=== PATIENT | female | born 1955 | race Caucasian/White ===

== ENCOUNTER → 2017-10-02 07:54 | Outpatient (CLI) | payer OTHER, SELFPAY | PROVIDERS: Family Provider Internal Medicine; PCP Internal Medicine; Visit Provider Obstetrics & Gynecology | DX: Z12.31 Encounter for screening mammogram for malignant neoplasm of breast (principal) | CPT/HCPCS: 77063; 77067 ==

== ENCOUNTER → 2018-06-12 08:51 | Outpatient (CLI) | payer OTHER, SELFPAY ==
[2018-06-12 12:50] LABS: Absolute Lymphocyte Count 1.15 X10^3/ul (0.83-4.51); Absolute Neutrophil Count 2.2 X10^3/uL (2.0-7.7); Basophil# 0.03 X10^3/uL; Basophil% 0.8 % (0-1); Eosinophil# 0.09 X10^3/uL; Eosinophils% 2.3 % (0-5); Hematocrit 41.9 % (37-47); Hemoglobin 13.5 g/dl (12.0-15.0); Lymphocyte # 1.15 X10^3/ul (4.0); Lymphocyte % 29.3 % (19-41); Mean Corp Hgb Conc 32.2 g/gl (32-36); Mean Corpuscular Hgb 29.2 pg (27.0-32.0); Mean Corpuscular Volume 90.7 fL (81-99); Mean Platelet Vol. 10.1 fl (6.2-12.0); Monocyte# 0.41 X10^3/uL; Monocyte% 10.5 % (0-10); Neutrophil # 2.24 X10^3/uL (2.7-7.7); Neutrophil % 57.1 % (47-70); Platelet Count 239 K/mm3 (150-450); RBC Distribution Width CV 13.4 % (11.6-14.6); RBC Distribution Width SD 44.2 fl (35.1-43.9); Red Blood Count 4.62 M/mm3 (4.2-5.4); White Blood Count 3.9 K/mm3 (4.4-11.0)
[2018-06-12 13:06] LABS: Vitamin D,25 Hydroxy 41.2 ng/mL (29.95-100.01)
[2018-06-12 13:10] LABS: ALB/GLOB Ratio 1.1 RATIO (0.9-2.4); AST(SGOT) 31 U/L (15-37); Alanine Aminotransfer ALT/SGPT 42 U/L (13-56); Albumin, Serum 3.8 g/dL (3.2-5.0); Alkaline Phosphatase 71 U/L (45-117); Anion Gap 5 (5-15); BUN 12 mg/dL (7-18); BUN/Creat Ratio 14.5 RATIO (10-20); Calcium,Total 8.7 mg/dL (8.5-10.1); Chloride 108 mmol/L (98-107); Cholesterol 171 mg/dL (200); Creatinine, Serum 0.83 mg/dL (0.55-1.02); EST Glomerular Filtration Rate 75 mL/min (>60); Est Glom Filt Rate - Afr Amer 90 mL/min (>60); Globulin 3.5 g/dL (2.2-4.2); Glucose 91 mg/dL (74-106); High Density Lipoprotein 41 mg/dL; Potassium 3.8 mmol/L (3.5-5.1); Protein, Total 7.3 g/dL (6.4-8.2); Sodium Level 139 mmol/L (136-145); Thyroid Stim Hormone (TSH) 2.01 uIU/mL (0.358-3.74); Triglycerides 125 mg/dL; Very Low Density Lipoprotein 25 mg/dL (5-40)
[2018-06-12 13:12] LABS: POSITIVE COUNT NO; POSITIVE DIFFERENTIAL NO; POSITIVE MORPHOLOGY NO
== END ==
PROVIDERS: Family Provider Family Medicine; PCP Family Medicine; Visit Provider Family Medicine
DX: E03.9 Hypothyroidism, unspecified (principal); E78.5 Hyperlipidemia, unspecified; R73.03 Prediabetes
CPT/HCPCS: 36415; 80053; 80061; 82306; 84443; 85025

== ENCOUNTER → 2018-11-03 08:41 | Outpatient (CLI) | payer OTHER, SELFPAY ==
--- NOTE | 2018-11-03 08:56 | BI_ITS ---
MAMMOGRAPHY - BILATERAL SCREENING REASON FOR EXAM: Female, 63 years old. Routine annual screening examination. PERTINENT HISTORY: Non-contributory. TECHNIQUE: Digital bilateral breast miriam (3D mammographic acquisition) in the CC and MLO projections. 2-D mediolateral oblique (MLO) and craniocaudad (CC) views of both breasts were obtained. CAD: Full Field Digital Mammography with Computer Added Detection was performed. COMPARISON: Comparison is made with prior study dated October 02, 2017 and August 29, 2016. FINDINGS: Breast Composition: There are scattered areas of fibroglandular density. There are no dominant masses or suspicious calcifications. Stable benign-appearing bilateral axillary lymph nodes. No other significant abnormalities are identified. There has been no significant change since the prior study. BI/SCREEN MAMM (CAD) W/MIRIAM BILAT IMPRESSION: Stable bilateral screening mammogram. Yearly follow-up mammogram recommended. (A) ASSESSMENT CATEGORY: BIRADS Category 2: Benign. A letter regarding these results will be sent to the patient by the facility within 30 days. Approximately 10% of breast cancers are not detected by mammography. A normal mammogram should not delay biopsy of a clinically suspicious abnormality. [id number] Electronically Signed: Gomez Keenan, at 10:34 EDT , Service support ,
== END ==
PROVIDERS: Family Provider Family Medicine; PCP Family Medicine; Referring Provider Obstetrics & Gynecology; Visit Provider Obstetrics & Gynecology
DX: Z12.31 Encounter for screening mammogram for malignant neoplasm of breast (principal)
CPT/HCPCS: 77063; 77067

== ENCOUNTER → 2019-11-18 07:55 | Outpatient (CLI) | payer OTHER, SELFPAY ==
[2018-11-03 09:34] VITALS: BMI 31.9
--- NOTE | 2019-11-18 07:55 | BI_ITS ---
MAMMOGRAPHY - BILATERAL SCREENING REASON FOR EXAM: Female, 64 years old. Routine annual screening examination. PERTINENT HISTORY: Grandmother with breast cancer. TECHNIQUE: Digital bilateral breast miriam (3D mammographic acquisition) in the CC and MLO projections. 2-D mediolateral oblique (MLO) and craniocaudad (CC) views of both breasts were obtained. CAD: Full Field Digital Mammography with Computer Added Detection was performed. COMPARISON: Comparison is made with prior examination dated 11/03/2018 and 10/02/2017. FINDINGS: Breast Composition: There are scattered areas of fibroglandular density. There are no dominant masses or suspicious calcifications. Stable small benign appearing bilateral axillary lymph nodes. No other significant abnormalities are identified. There has been no significant change since the prior study. BI/SCREEN MAMM (CAD) W/MIRIAM BILAT IMPRESSION: Stable bilateral screening mammogram. Yearly follow-up mammogram recommended. (A) ASSESSMENT CATEGORY: BIRADS Category 2: Benign. A letter regarding these results will be sent to the patient by the facility within 30 days. Approximately 10% of breast cancers are not detected by mammography. A normal mammogram should not delay biopsy of a clinically suspicious abnormality. [id number] Electronically Signed: Gomez Keenan, at 11:17 EDT , Service support ,
== END ==
PROVIDERS: PCP Family Medicine; Referring Provider Obstetrics & Gynecology; Visit Provider Obstetrics & Gynecology
DX: Z12.31 Encounter for screening mammogram for malignant neoplasm of breast (principal)
CPT/HCPCS: 77063; 77067

== ENCOUNTER 2021-03-06 14:51 | Outpatient (CLI) | payer OTHER, SELFPAY ==
[2019-11-18 08:40] VITALS: BMI 31.9
--- NOTE | 2021-03-06 14:55 | BI_ITS ---
MAMMOGRAPHY - BILATERAL SCREENING REASON FOR EXAM: Female, 65 years old. Routine annual screening examination. PERTINENT HISTORY: Grandmother with breast cancer. TECHNIQUE: Digital bilateral breast miriam (3D mammographic acquisition) in the CC and MLO projections. 2-D mediolateral oblique (MLO) and craniocaudad (CC) views of both breasts were obtained. CAD: Full Field Digital Mammography with Computer Added Detection was performed. COMPARISON: Comparison is made with prior study 11/18/2019 and 11/03/2018. FINDINGS: Breast Composition: There are scattered areas of fibroglandular density. There are no dominant masses or suspicious calcifications. No other significant abnormalities are identified. There has been no significant change since the prior study. BI/SCRN MAMM (CAD)W/MIRAIM BILAT IMPRESSION: Stable bilateral screening mammogram. Yearly follow-up mammogram recommended. (A) ASSESSMENT CATEGORY: BIRADS Category 1: Negative. A letter regarding these results will be sent to the patient by the facility within 30 days. Approximately 10% of breast cancers are not detected by mammography. A normal mammogram should not delay biopsy of a clinically suspicious abnormality. [id number] Electronically Signed: Gomez Keenan MD at 15:27 EST ,
[2021-03-12 13:22] LABS: HPV APTIMA, High Risk Negative (Negative)
== END 2021-03-06 23:59 | disposition short-term general hospital (02) ==
PROVIDERS: PCP Family Medicine; Referring Provider Obstetrics & Gynecology; Visit Provider Obstetrics & Gynecology
DX: Z12.31 Encounter for screening mammogram for malignant neoplasm of breast (principal); Z80.3 Family history of malignant neoplasm of breast; Z12.4 Encounter for screening for malignant neoplasm of cervix
CPT/HCPCS: 77063; 77067; 87624; 88175; G0145

== ENCOUNTER → 2022-03-08 | Outpatient (CLI) | payer OTHER, SELFPAY ==
--- NOTE | 2022-03-08 09:40 | BI_ITS ---
MAMMOGRAPHY - BILATERAL SCREENING REASON FOR EXAM: Female, 66 years old. Routine annual screening examination. PERTINENT HISTORY: Non-contributory. TECHNIQUE: Digital bilateral breast miriam (3D mammographic acquisition) in the CC and MLO projections. 2-D mediolateral oblique (MLO) and craniocaudad (CC) views of both breasts were obtained. CAD: Full Field Digital Mammography with Computer Added Detection was performed. COMPARISON: Comparison is made with prior study dated 09/03/2021 and 11/18/2019. FINDINGS: Breast Composition: The breasts are almost entirely fatty. There are no dominant masses or suspicious calcifications. Stable benign-appearing bilateral axillary lymph nodes. No other significant abnormalities are identified. There has been no significant change since the prior study. BI/SCRN MAMM (CAD)W/MIRIAM BILAT IMPRESSION: Stable bilateral screening mammogram. Yearly follow-up mammogram recommended. (A) ASSESSMENT CATEGORY: BIRADS Category 2: Benign. A letter regarding these results will be sent to the patient by the facility within 30 days. Approximately 10% of breast cancers are not detected by mammography. A normal mammogram should not delay biopsy of a clinically suspicious abnormality. [id number] Electronically Signed: Gomez Keenan MD at 10:42 EST ,
== END | disposition home or self-care (01) ==
PROVIDERS: PCP Family Medicine; Referring Provider Obstetrics & Gynecology; Visit Provider Obstetrics & Gynecology
DX: Z12.31 Encounter for screening mammogram for malignant neoplasm of breast (principal)
CPT/HCPCS: 77063; 77067

== ENCOUNTER → 2022-09-09 | Outpatient (CLI) | payer MEDICARE, SELFPAY ==
[2022-09-09 12:33] LABS: Absolute Lymphocyte Count 0.99 X10^3/uL (0.83-4.51); Absolute Neutrophil Count 3.1 X10^3/uL (2.0-7.7); Basophil# 0.04 X10^3/uL; Basophil% 0.8 % (0-1); Eosinophil# 0.12 X10^3/uL; Eosinophils% 2.5 % (0-5); Hematocrit 36.6 % (37-47); Hemoglobin 11.9 g/dL (12.0-15.0); Lymphocyte # 0.99 X10^3/ul (0.83-4.51); Lymphocyte % 20.5 % (19-41); Mean Corp Hgb Conc 32.5 g/dL (32-36); Mean Corpuscular Hgb 30.5 pg (27.0-32.0); Mean Corpuscular Volume 93.8 fL (81-99); Mean Platelet Vol. 10.4 fl (6.2-12.0); Monocyte# 0.52 X10^3/uL; Monocyte% 10.8 % (0-10); NRBC Flagged by Analyzer 0 % (0-5); Neutrophil # 3.14 X10^3/uL (2.7-7.7); Platelet Count 273 K/mm3 (150-450); RBC Distribution Width CV 13.7 % (11.6-14.6); RBC Distribution Width SD 46.2 fl (35.1-43.9); White Blood Count 4.8 K/mm3 (4.4-11.0)
[2022-09-09 14:07] LABS: ALB/GLOB Ratio 0.9 RATIO (0.9-2.4); AST(SGOT) 22 U/L (15-37); Alanine Aminotransfer ALT/SGPT 30 U/L (13-56); Albumin, Serum 3.4 g/dL (3.2-5.0); Alkaline Phosphatase 78 U/L (45-117); Anion Gap 5 (5-15); BUN 9 mg/dL (7-18); BUN/Creat Ratio 11.7 RATIO (10-20); Chloride 106 mmol/L (98-107); Cholesterol 168 mg/dL (200); Creatinine, Serum 0.77 mg/dL (0.55-1.02); EST Glomerular Filtration Rate 80 mL/min (>60); Est Glom Filt Rate - Afr Amer 97 mL/min (>60); Globulin 3.7 g/dL (2.2-4.2); Glucose 94 mg/dL (74-106); High Density Lipoprotein 52 mg/dL; Potassium 3.9 mmol/L (3.5-5.1); Protein, Total 7.1 g/dL (6.4-8.2); Sodium Level 137 mmol/L (136-145); Thyroid Stim Hormone (TSH) 2.72 uIU/mL (0.358-3.74); Triglycerides 97 mg/dL; Very Low Density Lipoprotein 19 mg/dL (5-40)
[2022-09-09 14:19] LABS: Hemoglobin A1c 5.7 % (3.8-5.6)
== END | disposition home or self-care (01) ==
LOC: BFHLAB 09:03
PROVIDERS: PCP Family Medicine; Referring Provider Family Medicine; Visit Provider Family Medicine
DX: Z00.00 Encounter for general adult medical examination without abnormal findings (principal); R73.01 Impaired fasting glucose; E78.00 Pure hypercholesterolemia, unspecified; E03.9 Hypothyroidism, unspecified
CPT/HCPCS: 36415; 80053; 80061; 83036; 84443; 85025

== ENCOUNTER → 2022-10-01 | Outpatient (CLI) | payer MEDICARE, SELFPAY ==
--- NOTE | 2022-10-01 13:59 | BD_ITS ---
STUDY: DUAL ENERGY X-RAY ABSORPTIOMETRY / DXA REASON FOR EXAM: Female, 67 years old. [id number] TECHNIQUE: Bone Mineral Density (BMD) measurements of lumbar spine and bilateral hips were obtained. COMPARISON: None. FINDINGS: Lumbar Spine (L1-L4): g/cm2 (0.993) / T-score (-0.4) / Z-score (1.4) Findings are suggestive of normal bone density with a low fracture risk. Left Femur Total: g/cm2 (0.919) / T-score (-0.2) / Z-score (1.0) Left Femoral Neck: g/cm2 (0.743) / T-score (-1.0) / Z-score (0.6) Right Femur Total: g/cm2 (0.982) / T-score (0.3) / Z-score (1.6) Right Femoral Neck: g/cm2 (0.769) / T-score (-0.7) / Z-score (0.8) BD/Dexa Bone Density Study IMPRESSION: The patient is considered normal as outlined below according to [employer] Organization (WHO) criteria with a low fracture risk. Reference Information: The T-score is the number of standard deviations above or below the standard which is normal for young adults at their peak bone mineral density. The World Health Organization (WHO) interprets the T-scores as follows: Above -1 Normal bone density Between -1 and -2.5 Osteopenia Equal to / or below -2.5 Osteoporosis As a practical clinical guideline, osteopenia may be graded as follows: Mild -1 through -1.5 Moderate -1.6 through -2.0 Severe -2.1 through -2.4 The Z-score is the number of standard deviations above or below age-matched controls. A Z-score of less than -1.5 would be considered abnormal. References: 1. NIH Osteoporosis and Related Bone Diseases www osteo.org 2. International Society for Clinical Densitometry www iscd.org 3. National Osteoporosis Foundation www nof.org Electronically Signed: Gomez Keenan MD at 8:42 EDT ,
== END | disposition home or self-care (01) ==
PROVIDERS: PCP Family Medicine; Referring Provider Family Medicine; Visit Provider Family Medicine
DX: Z78.0 Asymptomatic menopausal state (principal)
CPT/HCPCS: 77080

== ENCOUNTER → 2023-03-21 | Outpatient (CLI) | payer MEDICARE, SELFPAY ==
--- OUTSIDE RECORDS SUMMARY | 2023-03-21 18:12 | XMS RPT_ITS | CCD ---
Author Name Unknown Address [address] [place] [address] Organization [facility] Care Team Providers Care Custom [employer]ather [employer] Maker Name Role Phone Vesna Alejandra Unavailable Unavailab stefan Guidry MD, Daiana Delgado Unavailable [phone] PARUL ARNETT Unavailable Unavailable PARUL ARNETT Unavailable Unavailable Heather Polanco Primary Care Provider ABBIE SUTHERLAND Attending Unavailable PARUL ARNETT Referring Unavailable YISEL TATUM Primary Care Unavailable Yisel Tatum Primary Care Provider [phone] Vesna Alejandra Unavailable Unavailab Yisel Brown Primary Care Provider KADI MORRIS Attending Unavailable KADI MORRIS Primary Care Unavailable KADI MORRIS Admitting Unavailable KADI MORRIS Attending Unavailable KADI MORRIS Primary Care Unavailable KADI MORRIS Admitting Unavailable Allergies Allergy Classification Reported Allergen(s) Allergy Type Date of Onset Reaction(s) Facility (4 sources) sulfamethoxazole / trimethoprim drug allergy 7 [facility] [place] (9 sources) Sulfamethoxazole / Trimethoprim Drug Allergy 9 [facility] Work Phone: Medications Current Medications Medication Drug Class(es) Dates Sig (Normalized) Sig (Original) acetaminophen 325 mg / HYDROcodone bitartrate 5 mg oral tablet (3 sources) Opioid Agonist Start: 08-10-2018 End: 08-17-2018 take 1-2 tablets by mouth every four hours as needed for pain hydroCODone-acetam inophen 5-325 MG Tab tablet Indications: Post-op pain Take 1-2 tablets by mouth every 4 hours as needed for Pain (breakthrough) for up to 7 days. 50 tablet 0 08/10/2018 Active amitriptyline hydrochloride 25 mg oral tablet (9 sources) Tricyclic Antidepressant Start: 12-16-2017 take 2 tablets by mouth at bedtime amitriptyline 25 MG Tab tablet Take 2 tablets by mouth at bedtime. 0 12/16/2017 Active Completed/Discontinued Medications Medication Drug Class(es) Dates Sig (Normalized) Sig (Original) betamethasone 3 mg/ml / betamethasone acetate 3 mg/ml injectable suspension (2 sources) Corticosteroid Start: 02-24-2018 End: 02-24-2018 betamethasone acetate (CELESTONE) injection 6 mg Problems Active Problems Problem Classification Problem Date Documented Date Episodic/Chronic Other connective tissue disease (3 sources) Pain in right hand; Translations: [Right hand pain] Episodic Other connective tissue disease (1 source) Trigger thumb, right thumb; Translations: [Trigger finger of right thumb] Episodic Other nervous system disorders (3 sources) Paresthesia; Translations: [Paresthesia] Episodic Other nervous system disorders (2 sources) Paresthesia of skin; Translations: [Paresthesia of skin] Onset: 06-03-2018 Episodic Other nervous system disorders (1 source) Numbness of hand; Translations: [Numbness in both hands] Episodic Other nervous system disorders (1 source) Postoperative pain ; Translations: [Post-op pain] Episodic Other nervous system disorders (1 source) Carpal tunnel syndrome, bilateral upper limbs; Translations: [Bilateral carpal tunnel syndrome] Residual codes; unclassified (2 sources) H/O: surgery; Translations: [S/P trigger finger release] Episodic Residual codes; unclassified (2 sources) History of decompression of median nerve; Translations: [S/P carpal tunnel release] Episodic Unclassified (3 sources) Screening for malignant neoplasm of cervix ; Translations: [Encounter for screening for malignant neoplasm of cervix] Onset: 09-23-2016 09-23-2016 Unclassified (3 sources) Gynecologic examination ; Translations: [Encounter for gynecological examination (general) (routine) without abnormal findings] Onset: 09-23-2016 09-23-2016 Unclassified (4 sources) Screening mammography ; Translations: [Encounter for screening mammogram for malignant neoplasm of breast] Onset: 08-29-2016 08-29-2016 Unclassified (1 source) Procedure carried out on subject; Translations: [Encounter for screening for human papillomavirus (HPV)] Onset: 09-23-2016 09-23-2016 Past or Other Problems Problem Classification Problem Date Documented Date Episodic/Chronic Immunizations and screening for infectious disease (3 sources) Encounter for screening for human papillomavirus (HPV); Translations: [Encounter for screening for human papillomavirus (HPV)] Onset: 09-23-2016 09-23-2016 Episodic Other non-traumatic joint disorders (2 sources) Pain in left shoulder; Translations: [Pain in left shoulder] Onset: 12-18-2016 Episodic Results Test Name Value Interpretation Reference Range Facil ity Vital Signs Date Time Vital Sign Value Performing Clinician René litkatlin 09-29-2018 09:32-0400 BMI (Body Mass Index) 32.46 kg/m2 Gabriela [employer] 09-29-2018 09:32-0400 Body Temperature 98.2 [degF] Gabriela [employer] 09-29-2018 09:32-0400 Body weight 94 kg [place] [employer] 09-29-2018 09:32-0400 Height 170.2 cm [place] [employer] 08-25-2018 09:25-0400 BMI (Body Mass Index) 31.32 kg/m2 [facility] [employer] 08-25-2018 09:25-0400 Body Temperature 98.91 [degF] [facility] [employer] 08-25-2018 09:25-0400 Body weight 90.72 kg [facility] [employer] 08-25-2018 09:25-0400 Height 170.2 cm [facility] [employer] 08-10-2018 12:40-0400 BP Diastolic 66 mm[Hg] Gabriela [employer] 08-10-2018 12:40-0400 BP Systolic 124 mm[Hg] Gabriela [employer] 08-10-2018 12:40-0400 Pulse (Heart Rate) 69 /min Gabriela [employer] 08-10-2018 12:40-0400 Pulse Oximetry 95 % Gabriela [employer] 08-10-2018 12:40-0400 Respiratory Rate 16 /min Gabriela [employer] 08-10-2018 12:10-0400 Body Temperature 99 [degF] [facility] 08-10-2018 10:06-0400 BMI (Body Mass Index) 31.32 kg/m2 [facility] 08-10-2018 10:06-0400 Body weight 90.72 kg [facility] 08-10-2018 10:06-0400 Height 170.2 cm [facility] 07-15-2018 14:06-0400 BMI (Body Mass Index) 31.59 kg/m2 [facility] 07-15-2018 14:06-0400 Body Temperature 97.39 [degF] [facility] 07-15-2018 14:06-0400 Height 170.2 cm [facility] 07-15-2018 14:06-0400 Weight 91.5 kg [facility] 06-08-2018 09:31-0400 BMI (Body Mass Index) 32.33 kg/m2 Parul [facility] 06-08-2018 09:31-0400 Body Temperature 97 [degF] Parul [facility] 06-08-2018 09:31-0400 Height 170.2 cm Parul [facility] 06-08-2018 09:31-0400 Weight 93.62 kg Parul [facility] 05-21-2018 09:40-0400 BMI (Body Mass Index) 32.23 kg/m2 Parul [facility] 05-21-2018 09:40-0400 Body Temperature 97.9 [degF] Parul [facility] 05-21-2018 09:40-0400 Height 170.2 cm Parul [facility] 05-21-2018 09:40-0400 Weight 93.35 kg Parul [facility] 02-24-2018 12:54-0500 BMI (Body Mass Index) 31.48 kg/m2 Parul [facility] Work Phone: 02-24-2018 12:54-0500 Body Temperature 99 [degF] Parul [facility] Work Phone: 02-24-2018 12:54-0500 Height 170.2 cm Parul Arnett [facility] Work Phone: 02-24-2018 12:54-0500 Weight 91.17 kg Parul Arnett [facility] Work Phone: 09-23-2016 16:19-0400 BMI (Body Mass Index) 31.73 kg/m2 Daiana Guidry MD [facility] 09-23-2016 16:19-0400 Body Temperature 98.2 [degF] Daiana Guidry MD [facility] 09-23-2016 16:19-0400 BP Diastolic 82 mm[Hg] Daiana Guidry MD [facility] 09-23-2016 16:19-0400 BP Systolic 122 mm[Hg] Daiana Guidry MD [facility] 09-23-2016 16:19-0400 Height 170.18 cm Daiana Guidry MD [facility] 09-23-2016 16:19-0400 Pulse (Heart Rate) 66 /min Daiana Guidry MD [facility] 09-23-2016 16:19-0400 Respiratory Rate 16 /min Daiana Guidry MD [facility] 09-23-2016 16:19-0400 Weight 91.9 kg Daiana Guidry MD [facility] Encounters Encounter Date Encounter Type Care Provider Facility Start: 05-05-2020 End: 05-05-2020 Patient encounter procedure [facility] Start: 04-14-2020 End: 04-14-2020 Patient encounter procedure [facility] Start: 09-29-2018 End: 09-29-2018 Postop follow up visit related to original px Gabriela Jones Work Phone: [facility] Procedures Date Procedure Procedure Detail Performing Clinician Start: 07-16-2018 ORDERS (SCAN) Historical Provider Start: 06-03-2018 Electromyography Parulzev Arnett Work Phone: Start: 06-03-2018 Motor nerve conduction studies Abbie Sutherland Work Phone: Start: 02-24-2018 End: 02-24-2018 Arthrocentesis aspir&/inj small jt/bursa w/o us Parul Arnett Work Phone: Start: 09-23-2016 Gynecologic examination [place] annual exam Vesna gonzalez Start: 09-23-2016 Screening for malignant neoplasm of cervix Screening for cervical cancer Vesna Alejandra Start: 08-29-2016 End: 09-27-2016 Mammogram, screening Daiana dalal MD Work Phone: Start: 08-29-2016 Screening mammography Screening mammogram for breast cancer Vesna Alejandra Plan of Treatment Date Care Activity Detail Author Start: 10-11-2018 Influenza vaccination [facility] Start: 09-29-2018 End: 09-29-2018 Office Visit 09/29/2018 Office Visit Orthopaedics Gabriela Jones MD [address] [place], [place] [id number] [facility] Start: 08-25-2018 End: 08-25-2018 Office Visit 08/25/2018 Office Visit Orthopaedics Kevin Garvin, PA-C [address] [place] [address] [facility] Start: 08-10-2018 End: 08-10-2018 Procedure Pass [facility] Periop Immunizations Immunization Date Immunization Notes [facility]-21-2016 influenza virus vacc ine, unspecified formulation Parul Arnett [facility] Work Phone: Payers Date Payer Category Payer Private Health Insurance AEGRACIE VALLES xxxxxxxxxx 2017-Present [id number] 2017 Private Health Insurance [id number] 1955 Unknown [id number] 1955 Unknown [id number] 1955 Unknown [id number] Social History Date Type Detail Facility Start: 02-24-2018 End: 09-29-2018 Tobacco smoking status NHIS Never smoker [facility] Work Phone: Sex Assigned At Not on file [facility] Work Phone: Start: 07-22-2018 History SDOH Alcohol Frequency 1 [employer] Start: 09-29-2018 Alcohol intake Never [facility]ITA [facility]TH Summary Purpose Family History No Family History Records FoundNo Family History Records FoundNo Family History Records FoundNo Family History Records FoundNo Family History Records Found Advance Directives No Advanced Directives Records FoundDocuments on File Type Date Recorded Patient Purification Supervisor Expl anation HealthCare Power of Drag Out Worker 08/10/2018 9:38 AM POA Advance Directives/Living Will 08/10/2018 9:37 AM LIVING WILL Documents on File Type Date Recorded Patient Purification Supervisor Expl anation HealthCare Power of Drag Out Worker 08/10/2018 9:38 AM POA Advance Directives/Living Will 08/10/2018 9:37 AM LIVING WILL Instructions * Patient Instructions - Gabriela Oneil ATC - 02/24/2018 1:26 PM EST Formatting of this note may be different from the original. Thank you for visiting Dr. Parul Arnett, [facility]. Here is a summaryof recommendations. Please note this is a brief summary that may not include the full extent of recommendations but rather serve as a point of reference or reminder. [] Ice: 20-30 mins, 3-4 times a day [] [place] sock or night splint [x] Ice after activity [] Foam roller [] Heat as needed for pain & spasm [] Fue-ala-uhsac orthotic [] Elevate affected extremity often [] Heel cups/lift Metatarsal pad [x] Imgk-qye-biqsulc NSAID with caution. Do not use more than 1 type of oral NSAID in the same timeframe. Check with primary care physician prior to taking this especially if diabetic, on a blood thinner or have kidney or stomach problems. [] Crutches [] cosmetics supervisor prescription at your pharmacy [] Simple neoprene sleeve [] Glucosamine & Chondroitin [] [] Brace [] boot []splint: During []activity []at night [] Keep splint/cast clean, dry & intact [] [] Do home exercises as outlined [] [] Physical Therapy [] [] Weight bearing status: [] [] Activity Modification: [] [] [] Dr. Arnett is a non operative Orthopedics & Sports Medicine physician. He sees a broad spectrum of upper and lower extremity problems and aims to get you back to enjoying your lifestyle with conservative measures whenever possible. Our office is proud to help you, your family and your team! in this encounter* Patient Instructions* Janna Muniz - 06/08/2018 9:30 AM EDT Thank you for visiting Dr. Parul Arnett, [facility]. Here is a summaryof recommendations. Please note this is a brief summary that may not include the full extent of recommendations but rather serve as a point of reference or reminder. [] Ice: 20-30 mins, 3-4 times a day [x] night splint [] Ice after activity [] Foam roller [] Heat as needed for pain & spasm [] Ivs-pup-anfjq orthotic [] Elevate affected extremity often [] Heel cups/lift Metatarsal pad [] Oouj-nrn-dunifwp NSAID with caution. Do not use more than 1 type of oral NSAID in the same timeframe. Check with primary care physician prior to taking this especially if diabetic, on a blood thinner or have kidney or stomach problems. [] Crutches [] cosmetics supervisor prescription at your pharmacy [] Simple neoprene sleeve [] Glucosamine & Chondroitin [] [] Brace [] boot []splint: During []activity []at night [] Keep splint/cast clean, dry & intact [] [] Do home exercises as outlined [] [] Physical Therapy [] [] Weight bearing status: [] [] Activity Modification: [] [x] Referral to Dr. Jones [] Dr. Arnett is a non operative Orthopedics & Sports Medicine physician. He sees a broad spectrum of upper and lower extremity problems and aims to get you back to enjoying your lifestyle with conservative measures whenever possible. Our office is proud to help you, your family and your team! documented in this encounter History of Present Illness * Yuri Parul Thea, - 02/24/2018 12:45 PM EST Formatting of this note may be different from the original. Chief Complaint Patient presents with Right Hand - Pain, Follow-up HPI Pain Radiation To: thumb (02/24/18 1254) Pain Duration: 2 1/2 weeks (02/24/18 1254) Pain Frequency: constant (02/24/18 1254) Pain Quality: sharp;dull (02/24/18 1254) Factors That Aggravate Pain: activity (02/24/18 1254) Factors That Relieve Pain: rest (02/24/18 1254) Right hand dominant. Here with concerns for a trigger thumb. She has a history of contralateral trigger thumb and anus and symptoms are similar to the other side where she had an injection really helped it years ago. She describes typical triggering and pain. The base of the thumb. Of note, I have seen her in the past for shoulder issues which was felt to be an impingement which is better. She has had some persistent nonspecific paresthesias to the upper extremity with right worse than left. Wetanna talked about nerve study in the past had apparently given her a referral but she did not go through with this. IMPRESSION/PLAN X-ray's ordered and interpreted by me. Multiple x-ray views demonstrate no obvious bony abdomen is of the right hand. Joint space well preserved and soft tissues are normal. #1. Unremarkable right hand series. She has a fairly classic trigger thumb. She would like an injection. This is quite reasonable. Injection performed. Anti-Inflammatories as tolerated. Additional treatment workup discussed if her painpersists. Additionally, with bilateral chronic paresthesias, nerve study recommended. She would like to look into cost and she may want to do this at [facility] in [place] as insurance may be more favorable there. She will call us with her preference after she makes some phone calls. Reviewedconcerning signs and symptoms which would warrant more immediate follow-up with me. Questions answered. Patient will be calling us about nerve study referral which were happy to assist with wherever she would like to go. EXAM Both right and left wrists examined today. INSPECTION: Triggering of R thumb, PALPATION: TTP R A1 Jimmie ROM: Full AROM. No evidence of tendon injury. STRENGTH: Structural Steel Worker Helper: 5/5. Finger abduction: 5/5. Finger adduction: 5/5. Tinel's: R POS at wrist Physical exam performed by Dr. Arnett with documentation completed by Neftaly Oneil AT, ATC General medical exam: Constitutional: A&O x 3. No acute distress HEENT: EMOI. Conjunctiva normal. Trachea midline. Head: AT , [place] Neck: Supple CV : Normal rate Pulm: No audible wheezing. No respiratory distress Neuro: No acute focal neurological deficits. Skin: Warm. Dry. No diaphoresis. Psych: Normal mood and affect. Judgement normal. Nursing notes and vitals reviewed. Visit Vitals Temp 99 F (37.2 C) (Temporal) Ht 1.702 m (5' 7 ) Wt 91.2 kg (201 lb) BMI 31.48 kg/m ROS Gen: No recent fevers Skin: No new rash Eyes: No blurred vision CV : No acute chest pain Resp: No acute SOB. No recent wheezing GI : No abdominal pain. No acute loss of bowel : No acute incontinence Heme: No easy bleeding or bruising MSK : Negative except per HPI Neuro: Negative except per HPI PMH, PSH, FMH, social, meds and allergies reviewed and updated in chart. *Portions of this note may have been created with TrackIF software which leads to grammatical and typographical errors which are not field representatives director of the intent with my spoken words. SMALL JOINT INJECTION Date/Time: 02/24/2018 1:25 PM Procedure Details Location: thumb - Thumb joint: Right Thumb A1 Jimmie. Medication Verification: I have personally verified and performed the final check of the medication(s) used in this procedure prior to administration. The following items were included during the verification process for medication(s) administered: drug name, strength, volume, expiration, physical integrity and appearance of the medication(s). Medications administered: 2 mL lidocaine 10 mg/mL; 6 mg betamethasone acetate 6 (3-3) MG/ML Clinical human resource assistant/AT/MA was acting as a scribe today for this note. I have performed all essentialcomponents of the history, and physical exam. I have confirmed the diagnosis and developed a plan of care at this visit. I have reviewed the note following the visit and have add edits as appropriateto my evaluation and plan of care. Parul Arnett, DO * Gabriela Oneil ATC - 02/24/2018 12:45 PM EST Associated Order(s): SMALL JOINT INJECTION Post-Procedure Diagnose(s): Right hand pain Formatting of this note may be different from the original. Chief Complaint Patient presents with Right Hand - Pain, Follow-up HPI Pain Radiation To: thumb (02/24/18 1254) Pain Duration: 2 1/2 weeks (02/24/18 1254) Pain Frequency: constant (02/24/18 1254) Pain Quality: sharp;dull (02/24/18 1254) Factors That Aggravate Pain: activity (02/24/18 1254) Factors That Relieve Pain: rest (02/24/18 1254) EXAM Both right and left wrists examined today. INSPECTION: Triggering of R thumb, PALPATION: TTP R A1 Jimmie ROM: Full AROM. No evidence of tendon injury. STRENGTH: Structural Steel Worker Helper: 5/5. Finger abduction: 5/5. Finger adduction: 5/5. Tinel's: R POS at wrist Physical exam performed by Dr. Arnett with documentation completed by Neftaly GORMAN, [facility] General medical exam: Constitutional: A&O x 3. No acute distress HEENT: EMOI. Conjunctiva normal. Trachea midline. Head: AT , [place] Neck: Supple CV : Normal rate Pulm: No audible wheezing. No respiratory distress Neuro: No acute focal neurological deficits. Skin: Warm. Dry. No diaphoresis. Psych: Normal mood and affect. Judgement normal. Nursing notes and vitals reviewed. Visit Vitals Temp 99 F (37.2 C) (Temporal) Ht 1.702 m (5' 7 ) Wt 91.2 kg (201 lb) BMI 31.48 kg/m ROS Gen: No recent fevers Skin: No new rash Eyes: No blurred vision CV : No acute chest pain Resp: No acute SOB. No recent wheezing GI : No abdominal pain. No acute loss of bowel : No acute incontinence Heme: No easy bleeding or bruising MSK : Negative except per HPI Neuro: Negative except per HPI PMH, PSH, FMH, social, meds and allergies reviewed and updated in chart. *Portions of this note may have been created with TrackIF software which leads to grammatical and typographical errors which are not field representatives director of the intent with my spoken words. SMALL JOINT INJECTION Date/Time: 02/24/2018 1:25 PM Procedure Details Location: thumb - Thumb joint: Right Thumb A1 Jimmie. Medication Verification: I have personally verified and performed the final check of the medication(s) used in this procedure prior to administration. The following items were included during the verification process for medication(s) administered: drug name, strength, volume, expiration, physical integrity and appearance of the medication(s). Medications administered: 2 mL lidocaine 10 mg/mL; 6 mg betamethasone acetate 6 (3-3) MG/ML in this encounter* Parul Arnett DO - 05/21/2018 9:45 AM EDT Chief Complaint Patient presents with Right Hand - Pain HPI Pain Radiation To: none (05/21/18 09) Pain Duration: 4 mo. (05/21/18939) Pain Frequency: occasional (05/21/18939) Pain Quality: sharp (05/21/18939) Dictation on: 05/22/2018 10:36 AM by: PARUL ARNETT [[email or web address]] Physical exam performed by Dr. Arnett with documentation completed by General medical exam: Constitutional: A&O x 3. No acute distress HEENT: EMOI. Conjunctiva normal. Trachea midline. Head: AT , [place] Neck: Supple CV : Normal rate Pulm: No audible wheezing. No respiratory distress Neuro: No acute focal neurological deficits. Skin: Warm. Dry. No diaphoresis. Psych: Normal mood and affect. Judgement normal. Nursing notes and vitals reviewed. Visit Vitals Temp 97.9 F (36.6 C) Ht 1.702 m (5' 7 ) Wt 93.4 kg (205 lb 12.8 oz) BMI 32.23 kg/m ROS: Gen: No recent fevers Skin: No new rash Eyes: No blurred vision CV : No acute chest pain Resp: No acute SOB. No recent wheezing GI : No abdominal pain. No acute loss of bowel : No acute incontinence Heme: No easy bleeding or bruising MSK : Negative except per HPI Neuro: Negative except per HPI PMH, PSH, FMH, social, meds and allergies reviewed and updated in chart. Clinical human resource assistant/AT/MA was acting as a scribe today for this note. I have performed all essentialcomponents of the history, and physical exam. I have confirmed the diagnosis and developed a plan of care at this visit. I have reviewed the note following the visit and have add edits as appropriateto my evaluation and plan of care. Parul Arnett DO * Jerry Almazan - 05/21/2018 9:45 AM EDT Chief Complaint Patient presents with Right Hand - Pain HPI Pain Radiation To: none (05/21/18939) Pain Duration: 4 mo. (05/21/18939) Pain Frequency: occasional (05/21/18939) Pain Quality: sharp (05/21/18939) Physical exam performed by Dr. Arnett with documentation completed by General medical exam: Constitutional: A&O x 3. No acute distress HEENT: EMOI. Conjunctiva normal. Trachea midline. Head: AT , [place] Neck: Supple CV : Normal rate Pulm: No audible wheezing. No respiratory distress Neuro: No acute focal neurological deficits. Skin: Warm. Dry. No diaphoresis. Psych: Normal mood and affect. Judgement normal. Nursing notes and vitals reviewed. Visit Vitals Temp 97.9 F (36.6 C) Ht 1.702 m (5' 7 ) Wt 93.4 kg (205 lb 12.8 oz) BMI 32.23 kg/m ROS: Gen: No recent fevers Skin: No new rash Eyes: No blurred vision CV : No acute chest pain Resp: No acute SOB. No recent wheezing GI : No abdominal pain. No acute loss of bowel : No acute incontinence Heme: No easy bleeding or bruising MSK : Negative except per HPI Neuro: Negative except per HPI PMH, PSH, FMH, social, meds and allergies reviewed and updated in chart. documented in this encounter* Parul Arnett DO - 06/08/2018 9:30 AM EDT Chief Complaint Patient presents with Right Hand - Follow-up, Pain, EMG HPI Pain Quality: dull;sharp(sharp pain on thumb) (06/08/18931) Factors That Aggravate Pain: activity;movement (06/08/18931) Factors That Relieve Pain: rest (06/08/18931) Dictation on: 06/09/2018 8:34 AM by: PARUL ARNETT [[email or web address]] EXAM Physical exam performed by Dr. Arnett with documentation completed by Janna Tyler ATC General medical exam: Constitutional: A&O x 3. No acute distress HEENT: EMOI. Conjunctiva normal. Trachea midline. Head: AT , NC Neck: Supple CV : Normal rate Pulm: No audible wheezing. No respiratory distress Neuro: No acute focal neurological deficits. Skin: Warm. Dry. No diaphoresis. Psych: Normal mood and affect. Judgement normal. Nursing notes and vitals reviewed. Visit Vitals Temp 97 F (36.1 C) Ht 1.702 m (5' 7 ) Wt 93.6 kg (206 lb 6.4 oz) BMI 32.33 kg/m ROS Gen: No recent fevers Skin: No new rash Eyes: No blurred vision Resp: No recent wheezing GI : No acute loss of bowel : No acute incontinence Heme: No easy bleeding or bruising MSK : Negative except per HPI Neuro: Negative except per HPI PMH, PSH, FMH, social, meds and allergies reviewed and updated in chart. *Portions of this note may have been created with TrackIF or other software which leads to grammatical and typographical errors which are not field representatives director of the intent with my spoken words. Clinical human resource assistant/AT/PRESTON was acting as a scribe today for this note. I have performed all essentialcomponents of the history, and physical exam. I have confirmed the diagnosis and developed a plan of care at this visit. I have reviewed the note following the visit and have add edits as appropriateto my evaluation and plan of care. Parul Arnett DO * Janna Muniz - 06/08/2018 9:30 AM EDT Chief Complaint Patient presents with Right Hand - Follow-up, Pain, EMG HPI Pain Quality: dull;sharp(sharp pain on thumb) (06/08/18931) Factors That Aggravate Pain: activity;movement (06/08/18931) Factors That Relieve Pain: rest (06/08/18931) EXAM Physical exam performed by Dr. Arnett with documentation completed by Janna Tyler ATC General medical exam: Constitutional: A&O x 3. No acute distress HEENT: EMOI. Conjunctiva normal. Trachea midline. Head: AT , NC Neck: Supple CV : Normal rate Pulm: No audible wheezing. No respiratory distress Neuro: No acute focal neurological deficits. Skin: Warm. Dry. No diaphoresis. Psych: Normal mood and affect. Judgement normal. Nursing notes and vitals reviewed. Visit Vitals Temp 97 F (36.1 C) Ht 1.702 m (5' 7 ) Wt 93.6 kg (206 lb 6.4 oz) BMI 32.33 kg/m ROS Gen: No recent fevers Skin: No new rash Eyes: No blurred vision Resp: No recent wheezing GI : No acute loss of bowel : No acute incontinence Heme: No easy bleeding or bruising MSK : Negative except per HPI Neuro: Negative except per HPI PMH, PSH, FMH, social, meds and allergies reviewed and updated in chart. *Portions of this note may have been created with TrackIF or other software which leads to grammatical and typographical errors which are not field representatives director of the intent with my spoken words. documented in this encounter* Layla Lopez LPN - 07/15/2018 2:00 PM EDT Subjective Chief Complaint Patient presents with Right Hand - Numbness, Tingling, Pain NEW- CTS,Trigger Thumb Left Hand - Numbness, Tingling Review of Systems Constitutional: Negative for fever and chills. HENT: Negative for hearing loss. There is no tinnitus. Eyes: Negative for double vision. Cardiovascular: Negative for chest pain. Respiratory: Is not experiencing shortness of breath. Gastrointestinal: Negative for abdominal pain and blood in stool. Genitourinary: Negative for hematuria. Musculoskeletal: Positive for joint pain. Neurological: Negative for dizziness and seizures. Psychiatric: Negative for depression. Lymph/Heme: Negative for bruises/bleeds easily. Endocrine: Negative for polydipsia. documented in this encounter* Kevin Garvin PA-C - 08/25/2018 9:30 AM EDT 08/25/18 Chief Complaint Patient presents with Surgical Follow-up S/P right CTR, left thumb trigger release - OR 08/10/18 (15 days) HPI: Ghada is a 63-year old female that presents status post right carpal tunnel release and right thumb A1 jimmie release. Date of surgery was 08/10/18. She is 2 weeks out from that. Her numbness and pain has resolved. She is not having any significant postop pain. She is very happy with the carpal tunnel release. Her right thumb is still triggering intermittently. The surgery hasn't really seemed to do much for that. It does not trigger all the time, but if she hasn't used the finger in a while and she bends it the first time, it will catch on her. Physical Exam: Vitals: 08/25/18 0925 Temp: 98.9 degrees F (37.2 degrees C) Weight: 90.7 kg (200 lb) Height: 1.702 m (5' 7 ) Right hand: Incisions are benign. Sensation is intact to light touch. Capillary refill is brisk. Skin is warm and dry. 2-point discrimination is normal. She does have some catching of the left thumb when she bends it, but not every time. Assessment: 1. S/P right thumb A1 jimmie release - 2 weeks out 2. S/P right carpal tunnel release - 2 weeks out Plan: At this time, I discussed things at length with Ghada. She is doing excellent with her right carpal tunnel release. As far as triggering of her thumb, we are going to give her some time to heal and let the inflammation go down. I am going to have her follow up with Dr. Jones in 4 weeks to reevaluate the thumb. She will call sooner if she has any issues. * Shena Duque - 08/25/2018 9:30 AM EDT Review of Systems Constitutional: Negative for fever and chills. Eyes: Negative for double vision. Cardiovascular: Negative for chest pain and claudication. Respiratory: Is not experiencing shortness of breath. Gastrointestinal: Negative for abdominal pain and blood in stool. Genitourinary: Negative for hematuria. Musculoskeletal: Negative for myalgias. Neurological: Negative for seizures. Psychiatric: Negative for depression. Lymph/Heme: Negative for bruises/bleeds easily. Endocrine: Negative for polydipsia. documented in this encounter* Gabriela Jones MD - 09/29/2018 9:00 AM EDT 09/29/18 Chief Complaint Patient presents with Right Thumb - Follow-up Follow-up Rt. thumb A-1 jimmie release and Rt. CTR HPI: Ghada is here today in follow up of her right thumb A1 jimmie release and right carpal tunnel release. It has been 7 weeks. Generally speaking she is doing okay. She still has some palm tenderness and some catching in her thumb. Past Medical History: Diagnosis Date GERD (gastroesophageal reflux disease) Good tolerance for activity >4mets Hyperlipidemia Hypothyroidism Past Surgical History: Procedure Laterality Date DECOMPRESSION TRANSPOSITION MEDIAN NERVE Right 08/10/2018 Laterality: Right; Surgeon: Gabriela Jones MD; Location: [facility] INCISION TENDON SHEATH FINGER HAND Right 08/10/2018 Laterality: Right; Surgeon: Gabriela Jones MD; Location: [facility] OR POLYPECTOMY 12/05/2015 TUBAL LIGATION 1988 DILATION AND CURETTAGE 1986 TONSILLECTOMY Current Outpatient Medications: amitriptyline 25 MG Tab tablet, Take 2 tablets by mouth at bedtime. , Disp: , Rfl: atorvastatin 20 MG Tab tablet, Take 20 mg by mouth at bedtime. , Disp: , Rfl: calcium carbonate 500 MG Chew Tab tablet, Chew 500 mg as needed., Disp: , Rfl: Calcium Citrate 250 MG Tab, Take by mouth., Disp: , Rfl: Coenzyme Q10 (SM COENZYME Q-10) 100 MG Cap, Take 1 capsule by mouth daily., Disp: , Rfl: diphenhydrAMINE-APAP, sleep, (TYLENOL PM EXTRA STRENGTH PO), Take by mouth as needed., Disp: , Rfl: faMOTIdine 20 MG Tab tablet, Take 1 tablet by mouth daily., Disp: , Rfl: HERBAL PRODUCT, daily. Daily defense, Disp: , Rfl: Ibuprofen 200 MG Cap, Take 1 capsule by mouth as needed. Restart 08/11/18, Disp: 30 capsule, Rfl: 0 loratadine 10 MG Tab tablet, Take 10 mg by mouth daily., Disp: , Rfl: Multiple Vitamin (MULTIVITAMIN) Tab, Take 1 tablet by mouth daily., Disp: , Rfl: [place] 3-6-9 Fatty Acids (OMEGA 3-6-9 PO), Take by mouth., Disp: , Rfl: Probiotic Product (PROBIOTIC-10) Chew Tab, Chew daily. , Disp: , Rfl: SYNTHROID 75 MCG Tab tablet, Take 1 tablet by mouth daily., Disp: , Rfl: Vitamin D3 1000 units Tab tablet, Take 1,000 Units by mouth daily., Disp: , Rfl: hydroCODone-acetaminophen 5-325 MG Tab tablet, Take 1-2 tablets by mouth every 4 hours as needed for Pain (breakthrough) for up to 7 days., Disp: 50 tablet, Rfl: 0 Allergies Allergen Reactions Sulfamethoxazole-Trimethoprim body aches Social History Socioeconomic History Marital status: Spouse name: Not on file Number of children: Not on file Years of education: Not on file Highest education level: Not on file Occupational History Not on file Social Needs Financial resource strain: Not on file Food insecurity: Worry: Not on file Inability: Not on file Transportation needs: Medical: Not on file Non-medical: Not on file Tobacco Use Smoking status: Never Smoker Smokeless tobacco: Never Used Substance and Sexual Activity Alcohol use: Never Frequency: Never Drug use: No Sexual activity: Not on file Lifestyle Physical activity: Days per week: Not on file Minutes per session: Not on file Stress: Not on file Relationships Social connections: Talks on phone: Not on file Gets together: Not on file Attends faith service: Not on file Active member of club or organization: Not on file Attends meetings of clubs or organizations: Not on file Relationship status: Not on file Intimate partner violence: Fear of current or ex partner: Not on file Emotionally abused: Not on file Physically abused: Not on file Forced sexual activity: Not on file Other Topics Concern Not on file Social History Narrative Not on file Family History Problem Relation Age of Onset Other - Specify Mother Hypertension Mother Uterine Cancer Mother Other - Specify Father Hypertension Father Hypertension Sister Other - Specify Sister Ovarian Cancer Maternal Grandmother Breast Cancer Paternal Grandmother Stroke Paternal Grandfather Review of Systems Constitutional: Negative for fever and chills. HENT: Negative for hearing loss. Eyes: Negative for double vision. Cardiovascular: Negative for chest pain and claudication. Respiratory: Is not experiencing shortness of breath. Gastrointestinal: Negative for abdominal pain and blood in stool. Genitourinary: Negative for hematuria. Musculoskeletal: Negative for joint pain. Neurological: Negative for seizures. Psychiatric: Negative for depression. Lymph/Heme: Negative for bruises/bleeds easily. Endocrine: Negative for polydipsia. All other systems reviewed and are negative. Physical Examination: Vitals: 09/29/18 0932 Temp: 98.2 degrees F (36.8 degrees C) Weight: 94 kg (207 lb 3.7 oz) Height: 1.702 m (5' 7 ) Extremity: Exam demonstrates she has some hypertrophic scar tissue in her palm. No triggering of her finger, but she does have some clicking out of the IP joint of the thumb. She is neurovascularly intact. 2-point discrimination is normal, brisk capillary refill. Skin is warm and dry. Assessment: 1. Status post right carpal tunnel release. 2. Status post right trigger thumb release. Plan: Generally speaking she is doing well. At this point, I wouldn't recommend any intervention. She will see me back as needed. * Leonard Chery - 09/29/2018 9:00 AM EDT Review of Systems Constitutional: Negative for fever and chills. HENT: Negative for hearing loss. Eyes: Negative for double vision. Cardiovascular: Negative for chest pain and claudication. Respiratory: Is not experiencing shortness of breath. Gastrointestinal: Negative for abdominal pain and blood in stool. Genitourinary: Negative for hematuria. Musculoskeletal: Negative for joint pain. Neurological: Negative for seizures. Psychiatric: Negative for depression. Lymph/Heme: Negative for bruises/bleeds easily. Endocrine: Negative for polydipsia. All other systems reviewed and are negative. documented in this encounter Assessments Diagnosis Right hand pain- Primary Pain in limb Diagnosis Right hand pain- Primary Pain in limb Paresthesia Disturbance of skin sensation Diagnosis Numbness in both hands- Primary Disturbance of skin sensation Paresthesia Disturbance of skin sensation Diagnosis Right hand pain- Primary Pain in limb Paresthesia Disturbance of skin sensation Diagnosis Trigger finger of right thumb- Primary Bilateral carpal tunnel syndrome Carpal tunnel syndrome Diagnosis Post-op pain- Primary Other acute postoperative pain Diagnosis S/P right thumb A1 jimmei release- Primary S/P right carpal tunnel release Other postprocedural status Diagnosis S/P right carpal tunnel release- Primary Other postprocedural status S/P right thumb A1 jimmie release Reason for Referral Status Reason Specialty Diagnoses / Procedures Referred By Contact Referred To Contact Auth Not Needed Neurology Diagnoses Paresthesia Procedures EMG & NERVE CONDUCTION Parul Arnett, DO [address] [place], [place] [id number] Abbie Sutherland, [address] [id number] Status Reason Specialty Diagnoses / Procedures Referre d By Contact Referred To Contact Closed Neurology Diagnoses Paresthesia Procedures EMG & NERVE CONDUCTION Parul Arnett, DO [address] [place], [place] [id number] Abbie Sutherland, DO [address] [place] [address] Status Reason Specialty Diagnoses / Procedures Referred By Contact Referred To Contact New Request Orthopaedics Diagnoses Right hand pain Parul Arnett, DO [address] [facility] [place] [address] Gabriela Jones MD [address] [place], [place] [id number] Discharge Instructions * Instructions* Kevin Garvin PA-C - 08/10/2018 Ghada Snyder 08/10/2018 GABRIELA JONES M.D. HOME INSTRUCTIONS FOR OUTPATIENT HAND SURGERY: Following your surgery, you will have a dressing on your arm or hand. Depending on the type of surgery, it may be a soft gauze dressing, khadra bandage, cast or a combination of these. It is important to keep this dressing clean and dry, as it is meant to stay in place until you follow-up with the doctor or therapist. The surgeon may inform you or your family on the day of surgery if these instructions may be modified. In the setting of many small hand procedures, the wrap can be replaced with another type of bandage. If advised that it is ok, another wrap or even a waterproof band aide can be used over your incision. In all cases avoid getting the incision wet and observe it for any drainage that may appear. Your bandage should not be tight or rub you in a way that is problematic. Sometimes swelling can change this and cause a problem. If it should become tight or rub you in a way that is causing excessive discomfort in most situations loosening the wrap is the first step and can be done without concern. However, in the setting of a fracture or tendon repair please notify surgeon before unwrapping your surgical wound. Please do not apply neosporin or any other ointment on your incision until after the sutures have been removed. If you note a large amount of drainage, please contact your doctor. There will be some discomfort or pain at the operative site. This can be lessened by the use of an ice pack, elevating your hand above the level of your heart, and by the use of pain medication as needed. After the first 24 hours, you should use the operated hand to the extent your dressing will allow and make a fist 20 times an hour. This will help decrease swelling, especially in the fingers, and aid in lessening stiffness following surgery. Avoid lifting anything heavier than a gallon of milk with your surgical hand until you sutures are removed. This is most important if the surgical incision is on your palm. Lifting something too heavy could lead to the tearing out of your sutures and result wound complications. In addition, you may be instructed to begin a therapy program in the days following your surgery. If this is the case, you will be notified. If there are any questions or problems, please feel free to contact your physician by calling [phone] ([phone]). If it is after hours you can contact the control area operator doctor by calling [facility] at [phone]. Prescription refills will only be done during normal business hours. Please allow 48 hours for yourprescription to be refilled. There are certain restrictions that apply to the first 24 hours following surgery, especially afterhaving a generalor regional anesthetic: 1. Do not operate power equipment today (including cars, motorcycles, power saws, drills, etc.) 2. Do not sign any legal documents today. 3. Advance diet slowly, starting with liquids. No alcoholic beverages for at least 24 hours (longer if you are taking prescription pain medication). 4. You should be accompanied by an adult for the next 24 hours. If you do not have a post-operative appointment scheduled with your doctor please call the office on the next business day for an appointment at [phone]) documented in this encounter Additional Source Comments INFORMATION SOURCE (unrecogn ized section and content) DATE CREATED AUTHOR AUTHOR'S ORGANIZ ATION 06/03/2018 [facility] DATE CREATED AUTHOR AUTHOR'S ORGANIZ ATION 09/03/2019 [facility] DATE CREATED AUTHOR AUTHOR'S ORGANIZ ATION 05/17/2020 [facility] DATE CREATED AUTHOR AUTHOR'S ORGANIZ ATION 09/12/2021 [facility] Reason for Visit (unrecogniz ed section and content) Reason Comments Pain Status Reason Specialty Diagnoses / Procedures Referre d By Contact Referred To Contact Closed Neurology Diagnoses Paresthesia Procedures EMG & NERVE CONDUCTION Parul Arnett, DO [address] [place] [address] Abbie Sutherland, DO [address] [place] [address] Reason Comments Follow-up Pain EMG Reason Comments Numbness NEW- CTS,Trigger Alissa mb Tingling NEW- CTS,Trigger Alissa mb Pain NEW- CTS,Trigger Alissa mb Numbness Tingling Status Reason Specialty Diagnoses / Procedures Referre d By Contact Referred To Contact Diagnoses Carpal tunnel syndrome on right Trigger thumb of right hand Carpal tunnel syndrome on right [G56.01] Trigger thumb of right hand [M65.311] Procedures MA REVISE MEDIAN N/CARPAL TUNNEL SURG MA INCISE FINGER TENDON SHEATH DECOMPRESSION TRANSPOSITION MEDIAN NERVE INCISION TENDON SHEATH FINGER HAND Reason Comments Surgical Follow-up S/P right CTR, left thumb trigger release - OR 08/10/18 (15 days) Reason Comments Follow-up Rt. thumb A-1 jimmie release and Rt. CTR Follow-up FOR RECORDS PERTAINING TO PATIENTS WHO ARE OR HAVE BEEN ENROLLED IN A CHEMICAL DEPENDENCY/SUBSTANCEABUSE PROGRAM, SOME INFORMATION MAY BE OMITTED. This clinical summary was aggregated from multiple sources. Caution should be exercised in using it in the provision of clinical care. This summary normalizes information from multiple sources, and as a consequence, information in this document may materially change the coding, format and clinical context of patient data. In addition, data may be omitted in some cases. CLINICAL DECISIONS SHOULD BE BASED ON THE PRIMARY CLINICAL RECORDS. [facility]. provides no warranty or guarantee of the accuracy or completeness of information in this document.
== END | disposition home or self-care (01) ==
PROVIDERS: PCP Family Medicine; Referring Provider Obstetrics & Gynecology; Visit Provider Obstetrics & Gynecology
DX: Z12.31 Encounter for screening mammogram for malignant neoplasm of breast (principal); R10.2 Pelvic and perineal pain
CPT/HCPCS: 77063; 77067; 87086

== ENCOUNTER → 2023-03-21 | Outpatient (CLI) | payer MEDICARE, SELFPAY ==
--- NOTE | 2023-03-21 13:34 | BI_ITS ---
MAMMOGRAPHY - BILATERAL SCREENING REASON FOR EXAM: Female, 67 years old. Routine annual screening examination. PERTINENT HISTORY: Non-contributory. TECHNIQUE: Digital bilateral breast miriam (3D mammographic acquisition) in the CC and MLO projections. 2-D mediolateral oblique (MLO) and craniocaudad (CC) views of both breasts were obtained. CAD: Full Field Digital Mammography with Computer Added Detection was performed. COMPARISON: Comparison is made with prior study dated March 08, 2022 and March 06, 2021. FINDINGS: Breast Composition: There are scattered areas of fibroglandular density. There are no dominant masses or suspicious calcifications. Stable benign appearing axillary lymph nodes. No other significant abnormalities are identified. There has been no significant change since the prior study. BI/SCRN MAMM (CAD)W/MIRIAM BILAT IMPRESSION: Stable bilateral screening mammogram. Yearly follow-up mammogram recommended. (A) ASSESSMENT CATEGORY: BIRADS Category 2: Benign. A letter regarding these results will be sent to the patient by the facility within 30 days. Approximately 10% of breast cancers are not detected by mammography. A normal mammogram should not delay biopsy of a clinically suspicious abnormality. [id number] Electronically Signed: Gomez Keenan MD at 14:35 EST ,
== END | disposition home or self-care (01) ==
LOC: OPBI 13:33
PROVIDERS: PCP Family Medicine; Referring Provider Obstetrics & Gynecology; Visit Provider Obstetrics & Gynecology
DX: Z12.31 Encounter for screening mammogram for malignant neoplasm of breast (principal)
CPT/HCPCS: 77063; 77067

== ENCOUNTER → 2023-03-27 | Outpatient (CLI) | payer MEDICARE, SELFPAY ==
--- NOTE | 2023-03-27 14:16 | US_ITS ---
STUDY: ULTRASOUND OF THE FEMALE PELVIS - COMPLETE REASON FOR EXAM: Female, 67 years old. Pelvic pain LMP: Patient is postmenopausal. TECHNIQUE: Transabdominal and Transvaginal TECHNICAL QUALITY: Adequate. COMPARISON: None. FINDINGS: The uterus is anteverted and is in a midline position. The uterus is enlarged and measures 11.4 cm x 9.4 cm x 10.9 cm. Normal uterine cervix. The endometrium is thickened and measures 7 mm in thickness, and is heterogeneous (striated). There is no demonstrated endometrial mass. There are 2 fibroids in the uterus. The larger measures 3.5 cm x 3.3 cm x 2.4 cm. This is located anterior. This fibroid is very vascular in nature. I.U.D. - The patient does not have an I.U.D. The right ovary is non-visualized. The left ovary is visualized. The left ovary measures 1.9 cm x 1 cm x 1.2 cm. There is no left ovarian cyst or ovarian mass. There is no visualized left adnexal mass or complex lesion. There is normal arterial and normal venous vascularity. There is minimal fluid in the cul-de-sac. The pre void volume of the bladder was 609 ml. US/Pelvic w/ Transvaginal IMPRESSION: Enlarged fibroid uterus. Vascular fibroid. Endometrial thickening. Electronically Signed: Gomez Keenan MD at 12:43 EST ,
== END | disposition home or self-care (01) ==
PROVIDERS: PCP Family Medicine; Referring Provider Obstetrics & Gynecology; Visit Provider Obstetrics & Gynecology
DX: R10.2 Pelvic and perineal pain (principal)
CPT/HCPCS: 76830; 76856

== ENCOUNTER → 2023-04-02 | Outpatient (CLI) | payer MEDICARE, SELFPAY ==
[2023-04-04 04:07] LABS: Cancer Antigen 125 10.5 U/mL (0.0-38.1); Carcinoembryonic Antigen 1.6 ng/mL (0.0-4.7)
== END | disposition home or self-care (01) ==
LOC: PAVLAB 15:17
PROVIDERS: PCP Family Medicine; Referring Provider Obstetrics & Gynecology; Visit Provider Obstetrics & Gynecology
DX: N85.8 Other specified noninflammatory disorders of uterus (principal)
CPT/HCPCS: 36415; 82378; 86304

== ENCOUNTER → 2023-04-10 | Outpatient (CLI) | payer MEDICARE, SELFPAY ==
--- NOTE | 2023-04-10 10:44 | MRI_ITS ---
EXAM: MR PELVIS WITHOUT AND WITH INTRAVENOUS CONTRAST CLINICAL INDICATION: vascular fibroid/mass TECHNIQUE: Multiplanar and multisequence MR images of the pelvis without and with intravenous contrast. CONTRAST: IV 17cc Clariscan COMPARISON: Pelvic ultrasound 03/27/2023 FINDINGS: INTRAPERITONEAL SPACE: Normal. No ascites or other fluid collection. BLADDER: Normal. OVARIES: Neither ovary is clearly seen likely related to postmenopausal atrophy. UTERUS/CERVIX: Uterus measures 6.4 cm in length. Anterior uterine mass measuring 4.2 cm in maximum diameter and demonstrates prominent contrast enhancement consistent with increased vascularity noted on pelvic ultrasound. Posterior myometrial mass measuring 2.2 cm. 14 mm right-sided uterine mass. Normal endometrial thickness of 4 mm. BONES/JOINTS: Normal. SOFT TISSUES: Normal. No pelvic wall hernia. LYMPH NODES: Normal. No enlarged lymph nodes. MRI/Pelvis W/WO Contrast IMPRESSION: Fibroid uterus. Electronically Signed: Raymond Wheeler MD at 8:24 EST ,
[2023-04-10 11:38] LABS: CREATININE FINGERSTICK < 1.0 mg/dL (0.55-1.02); EGFR FINGERSTICK > 60.0000 mL/min (>60)
== END | disposition home or self-care (01) ==
LOC: MRI 10:38
PROVIDERS: PCP Family Medicine; Referring Provider Obstetrics & Gynecology; Visit Provider Obstetrics & Gynecology
DX: N85.8 Other specified noninflammatory disorders of uterus (principal); D25.9 Leiomyoma of uterus, unspecified
CPT/HCPCS: 72197; A9575

== ENCOUNTER → 2023-05-01 | Outpatient (CLI) | payer MEDICARE, SELFPAY ==
--- NOTE | 2023-05-01 13:31 | STE_ITS ---
Reason For Study: Chest Pain Stress Results Protocol: Abdias Protocol Maximum Predicted HR: 155 bpm Target HR: 132 bpm % Maximum Predicted HR: 91 % DurationHeart Rate Stage (mm:ss) (bpm) BP Comment Baseline 83 122/70No Chest Pain Abdias Protocol Stage I 3:00 112 134/76No Chest Pain Abdias Protocol Stage II 3:00 121 144/74No Chest Pain Abdias Protocol Stage III 3:00 136 166/78No Chest Pain Abdias Protocol Stage IV 0:30 141 / No Chest Pain Recovery 100 130/84No Chest Pain Stress Duration: 9:30 mm:ss Maximum Stress HR: 141 bpm METS: 11 Baseline Echocardiogram Findings Stress Echo Wall motion Data Resting WM Intermediate WM Stress WM ECHO/Stress Test Echo w/o Contrast Interpretation Summary Exercise stress echo. 67-year-old lady with a history of chest pain. Resting EKG demonstrates normal sinus rhythm with a rate of 74 bpm normal inter vals are noted resting blood pressure is 122/70 mmHg. The patient exercised according to the r egular Abdias protocol for total duration of 9 minutes and 30 seconds. The maximum heart rate attained was 144 bpm which was 92% of maximum predicted heart rate the maximum workload was 11.6 metabolic equivalents. At rest there were no ST or T wave changes noted suggest ischemia and at peak exercise upsloping ST changes were noted we did not meet the criteria for ischemia. The test was terminated d ue to target heart rate being achieved. The peak blood pressure was noted to be 170/90 which was a good blood pressure response to exercise. Stress echocardiogram. The resting echocardiogram demonstrated an ejection fraction of approximately 5 5%. No wall motion abnormalities were noted. At peak exercise there was thickening of all chen an d reduction of low ventricular cavity size with a peak ejection fraction of approximately 70%. No new wall motion abnormalities were noted. Conclusion: Exercise stress echocardiogram with no evidence of ischemia at a high workload. Excellent functional capacity. Ordering Physician: Yisel Tatum Referring Physician: Yisel Tatum Performed By: Jackelyn Bustamante RCS
== END | disposition home or self-care (01) ==
LOC: CVS 13:29
PROVIDERS: PCP Family Medicine; Referring Provider Family Medicine; Visit Provider Family Medicine
DX: R07.9 Chest pain, unspecified (principal)
CPT/HCPCS: 93017; 93350

== ENCOUNTER 2023-06-10 17:37 | Observation (INO) | payer MEDICARE, SELFPAY ==
[2023-06-02 15:49] LABS: Hematocrit 38.3 % (37-47); Hemoglobin 12.4 g/dL (12.0-15.0); Mean Corp Hgb Conc 32.4 g/dL (32-36); Mean Corpuscular Hgb 29.5 pg (27.0-32.0); Mean Platelet Vol. 9.6 fl (6.2-12.0); Platelet Count 231 K/mm3 (150-450); RBC Distribution Width CV 13.4 % (11.6-14.6); Red Blood Count 4.21 M/mm3 (4.2-5.4); White Blood Count 5.5 K/mm3 (4.4-11.0)
[2023-06-02 16:13] LABS: AST(SGOT) 24 U/L (15-37); Alanine Aminotransfer ALT/SGPT 32 U/L (13-56); Albumin, Serum 3.6 g/dL (3.2-5.0); Alkaline Phosphatase 81 U/L (45-117); Anion Gap 2 (5-15); BUN 10 mg/dL (7-18); BUN/Creat Ratio 11.6 RATIO (10-20); Calcium,Total 8.9 mg/dL (8.5-10.1); Chloride 108 mmol/L (98-107); Creatinine, Serum 0.86 mg/dL (0.55-1.02); EST Glomerular Filtration Rate 70 mL/min (>60); Est Glom Filt Rate - Afr Amer 85 mL/min (>60); Globulin 3.6 g/dL (2.2-4.2); Glucose 96 mg/dL (74-106); Protein, Total 7.2 g/dL (6.4-8.2); Sodium Level 139 mmol/L (136-145)
[2023-06-02 16:22] LABS: Magnesium 2.2 mg/dL (1.6-2.6); Thyroid Stim Hormone (TSH) 1.08 uIU/mL (0.358-3.74)
[2023-06-02 17:30] LABS: Prothrombin Time (Protime)PT. 12.8 SECONDS (11.7-14.9)
[2023-06-02 17:31] LABS: Partial Thromboplast Time 30.2 Seconds (24.1-36.2)
[2023-06-10] VITALS (21 sets, daily range): BP systolic 97–167; BP diastolic 65–88; PULSE 63–89; RESP 10–20; TEMP 36.2–36.9; O2SAT 90–100; BMI 30.2
--- NOTE | 2023-06-10 07:28 | HP.PCM_ITS ---
History and Physical Intake Vital Signs 04/27/2413:36 06/01/2414:54 06/01/2414:55 Height 5 ft 7 in 5 ft 7 in 5 ft 7 in Weight: 194 lb 2 oz BMI 30.4 BP 122/79 H Intake Visit Reasons: [facility] Licensing Director Required: No Is patient in pain?: No Allergies sulfamethoxazole [From Bactrim] Allergy (Mild, Verified 06/02/23 15:54) Othertrimethoprim [From Bactrim] Allergy (Mild, Verified 06/02/23 15:54) Other Medications amitriptyline 25 mg tablet 50 mg PO QHS 10/02/17 [History Confirmed 06/02/23] atorvastatin 20 mg tablet (Lipitor) 20 mg PO DAILY 10/02/17 [History Confirmed 06/02/23] cholecalciferol (vitamin D3) 25 mcg (1,000 unit) capsule 2,000 unit PO DAILY 10/02/17 [History Confirmed 06/02/23] levothyroxine 75 mcg tablet 75 mcg PO DAILY 10/02/17 [History Confirmed 06/02/23] Bacillus coagulans 250 million cell chewable tablet (Digestive Advantage Probiotic Gummy) 250 cell PO DAILY 03/21/23 [History Confirmed 06/02/23] calcium citrate 200 mg (950 mg) tablet 600 mg PO DAILY 03/21/23 [History Confirmed 06/02/23] ciprofloxacin HCl 500 mg tablet (Cipro) 500 mg PO BID PRN PRN UTI 03/21/23 [History Confirmed 06/02/23] famotidine 20 mg tablet 20 mg PO DAILY PRN PRN GERD 03/21/23 [History Confirmed 06/02/23] paroxetine HCl 20 mg tablet 20 mg PO QHS 03/21/23 [History Confirmed 06/02/23] turmeric 400 mg capsule 750 mg PO DAILY 03/21/23 [History Confirmed 06/02/23] zinc gluconate 50 mg tablet 50 mg PO TUTHSA 03/21/23 [History Confirmed 06/02/23] alprazolam 1 mg tablet 0.5 mg PO PRN PRN anxiety 05/28/23 [History Confirmed 06/02/23] loratadine 10 mg tablet (Claritin) 10 mg PO DAILY PRN PRN allergy symptoms 05/28/23 [History Confirmed 06/02/23] multivitamin with minerals-folic acid 80 mcg chewable tablet 1 tab PO DAILY 05/28/23 [History Confirmed 06/02/23] omega-3 650 mg-dha 400 mg-epa 200 mg-fish oil-vit D3 300 unit capsule 1 cap PO DAILY 05/28/23 [History Confirmed 06/02/23] sour sebastian extract 1,000 mg capsule (Tart Sebastian Extract) 1,000 mg PO DAILY 05/28/23 [History Confirmed 06/02/23] Post menopausal: No Patient : No : No PFSH Medical History Anemia Anxiety Back pain Bladder disease Chest pain Cough Diabetes Difficulty swallowing Easy bruising Gastric reflux History of anxiety History of pain when walking History of panic attacks History of steroid therapy History of stress test Hyperlipidemia Inner ear dysfunction Leg cramps Non-smoker Post-menopausal Shortness of breath on exertion Thyroid disorder Wears glasses Surgical History History of carpal tunnel surgery of right wrist History of tubal ligation HSG Hx of colonoscopy Hx of esophagogastroduodenoscopy Hx of tonsillectomy Status post cervical polyp removal Family History Mother Cancer skin bone liver endometrial Hypertension Thyroid disorderFather Hypertension Heart disease non hodgkins lymphoma CancerSister Kidney disease Stiff heart syndromeOther FH: mental illness Social History Smoking Status: Never smoker alcohol intake: never substance use type: does not use caffeine: Yes what type of physical activity do you participate in: none seatbelt use: always do you feel safe at home: Yes additional social history: Ye- Retired Patient is retired [employer] Details: RAMYA ACUNA is a 67 year old who presents for preop visit. she has uterine fibroid present for many years, has had multiple imaging over the years and has been stable in size 3-4 cm- but now is starting to have more pelvic pressure and discomfort, increased pudendal neuralgia symptoms which may be due to the fibroid. the patient denies any vaginal bleeding. she declines endometrial biopsy. 4 mm lining on pelvic MRI seen. 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 decision for oophorectomy also. 2 previous and good vaginal access. History 2 Elective abortions Hx Para 2 Spontaneous abortions Hx # Term Pregnancies Ectopic pregnancies Hx # Pregnancies Multiple births # of living children Past Pregnancies Del. Date Name GA/Weeks Outcome Route Bth Weight Gen Labor Lgth Anesthesia Del Locatn Provider FOB Unknown 1983 Ray Unknown 1987 Derrick ROS Const Constitutional: Denies fatigue, fever(s), headache(s), increased appetite, poor appetite, weight gain or weight loss GI GI: Reports as per HPI; Denies abdominal pain, constipation, nausea or vomiting : Reports as per HPI, pelvic pain and urinary incontinence; Denies difficulty voiding, dysuria, hematuria, urinary frequency, urinary hesitancy, urinary urgency, vaginal discharge, vaginal dryness, vaginal odor, vaginal pruritus or other Exam Const General: cooperative, healthy appearing, comfortable, no acute distress and well developed Orientation: alert HENMT Head: normal to inspection and normocephalic Ears: hearing grossly normal bilaterally and external ears normal Nose: external nose normal and nares normal Face and sinus: normal facial exam Neck Neck: normal visual inspection, no lymphadenopathy and trachea midline Thyroid: thyroid normal Abdomen: Effort & Inspection: normal respiratory effort, RRR no murmurs CardioResp: soft NTTP no masses palpated Musc Other: gross motor intact no deficits, full bilateral strength Skin General: no rashes or lesions noted Neuro Motor: muscle tone normal throughout Coding Level of Care Code No Charge Diagnoses Uterine fibroid D25.9 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 discussed surgical management if desired, plan lavhbso. (2) Pudendal neuralgia: Status: Acute Comment: possibly due to uterine fibroids. done PFPT. on amitryptilline. lidocaine topically. medrol dose pack ordered for acute exacerbation. if no improvement recommend gabapentin, and will contact PFPT for possible pelvic pain specialist referral Plan After discussing the patient's diagnosis and treatment plan options, patient wishes to proceed with surgical management. I have discussed with the patient the risks, benefits, and alternatives of the procedure which include but are not limited to risks of anesthesia, bleeding, infection, possible damage to bowel, bladder, or surrounding vasculature which could lead to additional surgery to evaluate any complications. Patient agrees to procedure and wishes to proceed. ACOG/uptodate references given for additional information regarding procedure. UPDATE- I have seen the patient and performed any clinically relevant updates to the history and physical exam. Daiana Guidry MD
[2023-06-10] MEDS: Celecoxib 200 MG Capsule 400 MG PO (07:58)
[2023-06-10] MEDS: Acetaminophen 500 MG Tablet 1000 MG PO ×2 (07:58→18:42)
[2023-06-10] MEDS: Phenazopyridine 95 MG Tablet 190 MG PO (07:58)
[2023-06-10] MEDS: Gabapentin 600 MG Tablet PO ×2 (07:59)
[2023-06-10] MEDS: Scopolamine 1mg/72hr Patch 1 PATCH TD (07:59)
[2023-06-10] MEDS: Lactated Ringers 1,000 ML 40 ML IV ×3 (08:00→21:57)
[2023-06-10] MEDS: dexAMETHasone 4 MG/ML Vial 8 MG IV (08:01)
[2023-06-10] MEDS: Magnesium 1 GM over 15 mins IV (08:02)
[2023-06-10] MEDS: Enoxaparin 40 MG/0.4 ML Syringe SC (08:02)
[2023-06-10 08:14] LABS: Bedside Glucose 91 mg/dL (74-106)
[2023-06-10] MEDS: Cefazolin 2 GM in 0.9% Normal Saline (100mL Bag) 100 ML IV (09:30)
--- NOTE | 2023-06-10 09:30 | HYST_PTH ---
PATIENT: RAMYA ACUNA LOC: MS3 U#:[id number] AGE/SX: 67/F ROOM: GA315 RE06/10/[address]: Dr. Daiana Guidry MD : 1955 BED: 1 DIS: 06/11/2023 SPEC #: [id number] RECD: 06/10/23 12:48 STATUS: ALFONSO ELLER #: [id number] LAURA: 06/10/23 09:[address]: Daiana Guidry DEPT: SURGICAL PATHOLOGY RECD BY: Arelis Jay ENTERED: 06/10/23 13:42 SP TYPE: HYSTERECT OTHR DR: Dr. Yisel Tatum MD Tissues: Uterus, NOS Procedures: Surgery Specimen Level V HEADER OPERATION: ERAS, hysterectomy, LAVH, bilateral salpingo- oopherectomy PRE-OP DIAGNOSIS: Uterine fibroids, pudendal neuralgia TISSUE SUBMITTED: Uterus, cervix, bilateral fallopian tubes and ovaries MICROSCOPIC DIAGNOSIS Uterus, hysterectomy: Cervix - Nabothian cysts. Endometrium polyp - Simple cystic hyperplasia without atypia. Endometrium- Inactive endometrium with cystic change. Myometrium - Leiomyomas. Right ovary- Corpora albicantia Right fallopian tube- No pathologic change. Left ovary- Corpora albicantia Left fallopian tube- No pathologic change. AM/mr 06/11/23 MICROSCOPIC DESCRIPTION Slides are reviewed. GROSS DESCRIPTION Received in fixative is one container labeled with the patient's name and designated uterus. The specimen consists of a uterus with attached cervix and attached right and left fallopian tubes and ovaries. The uterus with cervix measures 8.5 x 7.5 x 4.8 cm and weighs 107 gm. The ectocervix is grossly unremarkable. The cervical os is oval in contour. The endocervical canal measures 2.5 cm in length and is grossly unremarkable. The elongated endometrial cavity measures 4.0 x 2.5 cm. The posterior medial wall contains a flat polyp measuring 1.0 x 0.3cm in greatest dimension. The velvety, light vallejo endometrium measures up to 0.2 cm in thickness. The myometrium measures 2.5 cm in average thickness and is distorted by multiple fragment rubbery nodules ranging in size from 0.6 to 3.0cm. The cut surfaces of the nodules reveal a whorled rubbery appearance. The largest nodule is softer then the other nodules and contains multiple small foci of hemorrhage. The right ovary is vallejo-yellow has a small smooth glistening surface and measures 2.5 x 1.5 x 0.8cm. Serially sections of the ovary does not reveal mass lesions. The adjacent right fallopian tube measures 3.5cm in length and 0.5cm in average diameter. No tubal ovarian adhesions are identified. The left ovary is similar in appearance to the right ovary and measures 2.5 x 1.0 x 0.7cm. Serially sections of the left ovary do not reveal mass lesions. The left fallopian tube is similar in appearance to the right fallopian tube and measures 4.0cm in length and 0.6cm in average diameter. No tubal ovarian adhesions are identified. Ham Stripper sections are submitted in nine cassettes as follows: 1 - anterior cervix and posterior cervix (anterior cervix in black), 2 - endometrial polyp, 3 & 4 - anterior uterine wall, 5- posterior uterine wall ,6 - largest myometrial mass, 7 - second largest and third myometrial masses, 8 - right fallopian tube and ovary, 9- left fallopian tube and ovary. / AM: 06/10/23 TC:1 CPT: 44439
[2023-06-10] MEDS: Ondansetron 4 MG/2 ML Vial IV (09:49)
[2023-06-10] MEDS: Bupivacaine 0.25% 30 ML Vial (09:54)
[2023-06-10] MEDS: Vasopressin 20 UNITS/ML Vial (10:52)
--- NOTE | 2023-06-10 12:24 | PCM.OPRPT ---
Problems Associated Problem List Diagnoses (1) Uterine fibroid: (2) Pudendal neuralgia: Report of Operation Date of Procedure: 06/10/23 Pre-Operative Diagnosis: see A/P Post-Operative Diagnosis: same Surgery/Procedure Performed:: FROY Description of Surgical Findings:: left lower anterior fibroid, pelvic congestion Surgeon: Daiana Guidry vocational evaluator: Aden Aleman Type of Anesthesia: General Specimen's removed: uterus, tubes, ovaries Drains: ramsey Estimated Blood Loss (mL): 250 Fluids Replaced: crystalloid Description of Procedure: Patient received preoperative antibiotics and SCDs were on preoperatively. Patient was taken back to the operating room and placed in the dorsal lithotomy position. General anesthesia was induced and patient was prepped and draped in normal sterile fashion. Uterine manipulator was placed inside the uterus and Ramsey catheter placed in the bladder. The umbilicus was grasped with towel clamps and an intraumbilical incision was made after injecting with quarter percent Marcaine and a Veress needle entered into the abdomen confirmed to be intra-abdominal with a low opening pressure. Abdomen was insufflated with CO2 gas and the Veress needle removed and the 5 mm trocar was placed under direct visualization without complication. Right and left lower quadrants were transilluminated and injected with quarter percent Marcaine and 5 mm ports placed under direct visualization. Pelvis was well visualized see operative findings for additional information. Bilateral fallopian tubes and ovaries were identified and transected with the LigaSure device across the IP ligament to the level of the utero-ovarian ligament which was also transected with the LigaSure device. The broad ligament was opened up by transecting the round ligament bilaterally and skeletonizing the uterine vessels bilaterally and creating a bladder flap after hydrodissecting and then using the LigaSure device. The uterine arteries were transected bilaterally with good visualization of the bladder and the ureters were seen to be inferior lateral to the operative area. Attention was then paid to the vaginal portion of the procedure and the cervix was grasped with Emerson clamps and circumferentially injected with dilute vasopressin. A circumferential incision was made and the vaginal mucosa was mobilized off posteriorly and the cul-de-sac entered into sharply and a longneck speculum placed. The anterior cul-de-sac was then identified and entered into sharply. The uterosacral ligaments were clamped cut and suture ligated with 0 Monocryl bilaterally followed by the cardinal ligaments which were clamped cut and suture ligated bilaterally with 0 Monocryl. The uterus serially descended and was removed without difficulty. Pelvic sidewall pedicles were checked and noted to have excellent hemostasis. The vaginal mucosa was reapproximated incorporating the posterior peritoneum. This was reapproximated using 0 Vicryl [id number] sutures. Excellent hemostasis was noted. The pelvis and cul-de-sac were well visualized and no significant active bleeding noted after cauterization was used over the right round ligament complex. Pressure was taken down and the areas visualized and noted of excellent hemostasis. All ports were removed under direct visualization without complication and the abdomen was desufflated of air. The instruments were removed from the abdomen and the vaginal sweep was negative. Port sites on the abdomen were closed with 4-0 Monocryl interrupted sutures and Steri's and windows were applied. She was awoken and taken recovery in stable condition. Grafts/Implants Used: none Procedure Start Time: 09:54 Procedure Stop Time: 11:54 Complications none Admit VTE Documentation VTE Present on Admission: No VTE Mechan Device Prophylaxis: SCD's VTE Pharm Prophylaxis ordered?: Yes Procedures Urinary/Genital 52xxx-59xxx: [id number] LAVH+BS/O <250gr Uterus
--- NOTE | 2023-06-10 12:28 | DCINST_ITS ---
Discharge Instructions Diet Discharge Diet: No restrictions Activity May resume sexual activity in: 6 weeks Weight Bearing Status: Full weight bearing Dressing / Incision Call your doctor if your incision/area has: Continuous Slow Oozing, Sudden Increased Bleeding, Increased Pain/ Swelling, Increased Redness and Foul Smelling Discharge Call your doctor if you observe: Fever of 101 or Higher, Using more than 1 pad per hour, Shortness of breath, Chest pain and Uncontrolled pain Suture Line Care: Avoid Pulling/Pushing and Avoid Pinching/Bending Remove Dressing in: 1 week (if present) Cleanse incision/area with: Soap & Water and Keep Dressing Clean & Dry Follow Up Care Please Follow Up With: Daiana Guidry MD When: Call to make an appointment with your doctor for a postop visit in 2 and 6 weeks. Test Results: Test results from this visit will be discussed in further detail at your follow- up appointment, if applicable. Discharge Plan Admission Attending Provider: Daiana Guidry Primary Care Provider: Yisel Tatum Discharge Orders/Prescriptions Prescriptions: No Action levothyroxine 75 mcg tablet 75 mcg PO DAILY amitriptyline 25 mg tablet 50 mg PO QHS atorvastatin [Lipitor] 20 mg tablet 20 mg PO DAILY cholecalciferol (vitamin D3) 1,000 unit capsule 2,000 unit PO DAILY calcium citrate 200 mg (950 mg) tablet 600 mg PO DAILY famotidine 20 mg tablet 20 mg PO DAILY PRN PRN (Reason: GERD) ciprofloxacin HCl [Cipro] 500 mg tablet 500 mg PO BID PRN PRN (Reason: UTI) paroxetine HCl 20 mg tablet 20 mg PO QHS Digestive Advantage Prob Gummy 250 million cell tablet,chewable 250 cell PO DAILY zinc gluconate 50 mg tablet 50 mg PO TUTHSA turmeric 400 mg capsule 750 mg PO DAILY multivit with min-folic acid 80 mcg tablet,chewable 1 tab PO DAILY [id number]-fish oil-vit D3 [phone] xr-wh-wi-unit capsule 1 cap PO DAILY Tart Sebastian Extract 1,000 mg capsule 1,000 mg PO DAILY loratadine [Claritin] 10 mg tablet 10 mg PO DAILY PRN PRN (Reason: allergy symptoms) alprazolam 1 mg tablet 0.5 mg PO PRN PRN (Reason: anxiety) Referrals / Follow Up: Yisel Tatum MD [Primary Care Provider] - Disposition Disposition (needs filled in before D/C Order can be placed): Home, Self Care
[2023-06-10 15:18] LABS: Absolute Neutrophil Count 8.3 X10^3/uL (2.0-7.7); Basophil# 0.02 X10^3/uL; Basophil% 0.2 % (0-1); Hematocrit 38.7 % (37-47); Hemoglobin 12.8 g/dL (12.0-15.0); Lymphocyte % 3.4 % (19-41); Mean Corp Hgb Conc 33.1 g/dL (32-36); Mean Corpuscular Hgb 30.2 pg (27.0-32.0); Mean Corpuscular Volume 91.3 fL (81-99); Mean Platelet Vol. 9.7 fl (6.2-12.0); Monocyte# 0.06 X10^3/uL; Monocyte% 0.7 % (0-10); NRBC Flagged by Analyzer 0 % (0-5); Neutrophil % 95.1 % (47-70); POSITIVE DIFFERENTIAL YES; Platelet Count 217 K/mm3 (150-450); RBC Distribution Width CV 13.4 % (11.6-14.6); RBC Distribution Width SD 45.4 fl (35.1-43.9); Red Blood Count 4.24 M/mm3 (4.2-5.4); White Blood Count 8.7 K/mm3 (4.4-11.0)
[2023-06-10 15:44] LABS: Differential Indicated SCAN CRITERIA MET
[2023-06-10 15:45] LABS: Anisocytosis RARE; Macrocytosis RARE; Platelet Estimate ADEQUATE (ADEQ); Red Cell Morphology N CHROM NORMAL (NORM C&C)
[2023-06-10] MEDS: Ketorolac 30 MG/ML Syringe IV (18:42)
[2023-06-10] MEDS: 0.9% Saline Lock 10 ML Syringe IV (18:43)
[2023-06-10] MEDS: Docusate Sodium 100 MG Capsule PO (21:58)
[2023-06-11] MEDS: Acetaminophen 500 MG Tablet 1000 MG PO ×3 (00:01→11:31)
[2023-06-11] MEDS: Ketorolac 30 MG/ML Syringe IV ×3 (00:01→11:31)
[2023-06-11 02:25] VITALS: BP 138/73; PULSE 79; RESP 16; TEMP 36.6; O2SAT 97
[2023-06-11 06:15] VITALS: BP 126/68; PULSE 60; RESP 16; TEMP 36.7; O2SAT 98
[2023-06-11 06:23] LABS: Hematocrit 33.3 % (37-47); Hemoglobin 10.9 g/dL (12.0-15.0); Mean Corp Hgb Conc 32.7 g/dL (32-36); Mean Corpuscular Hgb 29.6 pg (27.0-32.0); Mean Corpuscular Volume 90.5 fL (81-99); Platelet Count 219 K/mm3 (150-450); RBC Distribution Width CV 13.2 % (11.6-14.6); RBC Distribution Width SD 44.1 fl (35.1-43.9); Red Blood Count 3.68 M/mm3 (4.2-5.4); White Blood Count 9.7 K/mm3 (4.4-11.0)
[2023-06-11] MEDS: Docusate Sodium 100 MG Capsule PO (07:51)
[2023-06-11] MEDS: Enoxaparin 40 MG/0.4 ML Syringe SC (07:51)
[2023-06-11] MEDS: Ensure Plus High Protein 120 ML LIQUID PO ×2 (07:51→11:32)
[2023-06-11 08:00] VITALS: BP 120/69; PULSE 62; RESP 13; TEMP 36.6; O2SAT 100
--- NOTE | 2023-06-11 08:12 | PCM.PN.OB ---
Subjective Subjective patient recovering well, denies CP, SOB, N, or V. patient is ambulating, voiding ,tolerating adequate po, and pain is controlled with oral medications. Objective Data Objective Data Vital Signs: Vital Signs Temp Pulse Resp BP Pulse Ox O2 Del Method O2 Flow Rate 98.1 F 60 16 126/68 H 98 Room Air 1 06/11/23 06:15 06/11/23 06:15 06/11/23 06:15 06/11/23 06:15 06/11/23 06:15 06/11/23 06:15 06/10/23 14:30 Oxygen Flow Rate (L/min) 1 Oxygen Delivery Method Room Air Weight: 192 lb 14.472 oz Body Mass Index (BMI) 30.2 Intake & Output: Intake and Output for Last 24 Hours 06/09/23 06/10/23 06/11/23 23:59 23:59 23:59 Intake Total 2394 / 2594 726.67 / 726.67 Output Total 800 / 800 Balance 1594 / 1794 726.67 / 726.67 Lab / Micro Data 06/11/23 05:35 06/02/23 15:29 Labs: Laboratory Results - last 24 hr 06/10/23 07:55: POC Glucose 91 06/10/23 15:00: WBC 8.7, RBC 4.24, Hgb 12.8, Hct 38.7, MCV 91.3, MCH 30.2, MCHC 33.1, RDW Std Deviation 45.4 H, RDW Coeff of Ciara 13.4, Plt Count 217, MPV 9.7, Immature Gran % (Auto) 0.600, Neut % (Auto) 95.1 H, Lymph % (Auto) 3.4 L, Marshall % (Auto) 0.7, Eos % (Auto) 0.0, Baso % (Auto) 0.2, Absolute Neuts (auto) 8.3 H, Absolute Lymphs (auto) 0.30 L, Nucleated RBC % 0, Differential Comment SEE COMMENT, Platelet Estimate ADEQUATE, RBC Morphology N CHROM, Anisocytosis RARE, Macrocytosis RARE 06/11/23 05:35: WBC 9.7, RBC 3.68 L, Hgb 10.9 L, Hct 33.3 L, MCV 90.5, MCH 29.6, MCHC 32.7, RDW Std Deviation 44.1 H, RDW Coeff of Ciara 13.2, Plt Count 219, MPV 10.0 Physical Exam Const alert, oriented x3 and no apparent distress Resp normal respiratory effort GI soft to palpation and non-distended Inspection: incision other (dressing dry and intact) Narrative: Minimal drainage on peripad Bladder / Kidney Exam: catheter in place Assessment & Plan (1) S/P BSO (bilateral salpingo-oophorectomy): (2) S/P laparoscopic assisted vaginal hysterectomy (LAVH): COMMENT: fibroids SM PLAN: Plan patient is s/p 1 POD 1 1. routine ERAS protocol postop care- increase ambulation, encourage oral intake and oral control of pain. lovenox and scds for dvt prophylaxis, patient stable for discharge to home.
--- NOTE | 2023-06-11 09:53 | CASEMGMT ---
IRMA JOSE NOTE: Pt being discharged. IRMA JOSE to room. Introduced self and role. Pt states she lives w/her , who will be taking her home today. She states she had used a walker earlier just in case she needed it, but has since then been up in room without a walker and states was steady on her feet w/out difficulty. Pt denies having any discharge needs/concerns. Addi GUY RN, CM
--- NOTE | 2023-06-11 10:51 | PHA.DC.MC.R ---
Pharmacy [facility] has performed discharge medication reconciliation and counseling for this patient. 1. NAPROXEN 500MG PO BID PRN PAIN 2. OXYCODONE 5/325MG 1T PO Q6H PRN PAIN The patient's discharge medication list was reviewed for discrepancies and discrepancies were resolved. The patient was counseled on the following discharge medications and changes in medications for homegoing were reviewed. The Reason for Use, instructions for use, and potential side effects were reviewed for all new medications. The patient's questions regarding all of their medications were answered. The patient was able to verbally demonstrate an understanding of their discharge medications. Medications at Discharge Home Medications amitriptyline 25 mg tablet 50 mg PO QHS 10/02/17 atorvastatin 20 mg tablet (Lipitor) 20 mg PO DAILY 10/02/17 cholecalciferol (vitamin D3) 25 mcg (1,000 unit) capsule 2,000 unit PO DAILY 10/02/17 levothyroxine 75 mcg tablet 75 mcg PO DAILY 10/02/17 Bacillus coagulans 250 million cell chewable tablet (Digestive Advantage Probiotic Gummy) 250 cell PO DAILY 03/21/23 calcium citrate 200 mg (950 mg) tablet 600 mg PO DAILY 03/21/23 famotidine 20 mg tablet 20 mg PO DAILY PRN PRN GERD 03/21/23 paroxetine HCl 20 mg tablet 20 mg PO QHS 03/21/23 turmeric 400 mg capsule 750 mg PO DAILY 03/21/23 zinc gluconate 50 mg tablet 50 mg PO TUTHSA 03/21/23 alprazolam 1 mg tablet 0.5 mg PO PRN PRN anxiety 05/28/23 loratadine 10 mg tablet (Claritin) 10 mg PO DAILY PRN PRN allergy symptoms 05/28/23 omega-3 650 mg-dha 400 mg-epa 200 mg-fish oil-vit D3 300 unit capsule 1 cap PO DAILY 05/28/23 sour sebastian extract 1,000 mg capsule (Tart Sebastian Extract) 1,000 mg PO DAILY 05/28/23 naproxen 500 mg tablet 500 mg PO BID PRN PRN Pain #30 tabs 06/10/23 oxycodone-acetaminophen 5 mg-325 mg tablet (Percocet) 1 tab PO Q6H PRN pain 7 days #20 tabs 06/10/23
[2023-06-11] MEDS: 0.9% Saline Lock 10 ML Syringe IV (11:32)
== END 2023-06-11 14:00 | disposition home or self-care (01) ==
LOC: SDC 17:53 → MS3 17:53
PROVIDERS: Anesthesiology; Admitting Provider Obstetrics & Gynecology; PCP Family Medicine; Referring Provider Family Medicine; Visit Provider Obstetrics & Gynecology
PROC: 0UT9FZZ Resection of Uterus, Via Natural or Artificial Opening With Percutaneous Endoscopic Assistance (ICD-10-PCS; CPT 58552; principal; 2023-06-10 09:05)
DX: D25.9 Leiomyoma of uterus, unspecified (principal); E11.9 Type 2 diabetes mellitus without complications; F41.0 Panic disorder [episodic paroxysmal anxiety]; E78.5 Hyperlipidemia, unspecified; N85.01 Benign endometrial hyperplasia; G58.8 Other specified mononeuropathies; Z79.899 Other long term (current) drug therapy; K21.9 Gastro-esophageal reflux disease without esophagitis; Z86.2 Personal history of diseases of the blood and blood-forming organs and certain disorders involving the immune mechanism; E07.9 Disorder of thyroid, unspecified; Z79.890 Hormone replacement therapy; R06.02 Shortness of breath
CPT/HCPCS: 58552; 00944; 36415; 80053; 82962; 83735; 84443; 85025; 85027; 85610; 85730; 86850; 86900; 86901; 88307; 94668; 96372; 96374; 96376; 99221; J7120; A4216; G0378; J2405; J3475

== ENCOUNTER 2023-07-04 07:07 | Day surgery (SDC) | payer MEDICARE, SELFPAY ==
--- NOTE | 2023-07-04 07:19 | H&P.OPEN ---
HPI - General General Date of Service: 07/04/23 HPI Narrative RAMYA ACUNA, is a 67 F who presents for an EGD and screening colonoscopy. Patient's last EGD and colonoscopy was in 2012. Patient denies any reflux symptoms and is not currently taking any medications for this. Patient states she had outpatient stress test which was negative after having the heaviness in her chest at the last office visit. Patient has bowel movements daily denies any blood. office visit 04/02/23 [facility] HPI: 67-year-old female presents for screening colonoscopy as well as EGD. Patient's last colonoscopy was at [facility] in 2012 negative per patient. Patient states she has bowel movements daily denies any blood. Patient does have some pelvic pain issues which she is currently seeing Dr. Guidry for. Patient has had a previous EGD in 2012 as well as she has had reflux for years and has been on omeprazole for quite a while however has stopped more recently as she had changed her diet and lost about 10 pounds intentionally. Patient states she may have symptoms about twice a week currently while she is not on the medication. Patient does state occasionally she does feel like she gets a tickle in her throat causes her to cough a lot this can be related little bit to eating but she does not feel like she is aspirating or having dysphagia. On Friday patient did note that she was leaning down to to help her granddaughter so and she had a little bit of back discomfort and also some heaviness in her chest she states her blood pressure is normal at that time and was on and off all day on Friday did improve on Friday patient does have a history of panic attacks however patient did not really have a lot of anxiety currently with this. Patient has not seen her PCP about this. [facility] Medical History Wears glasses Post-menopausal Anxiety History of steroid therapy Diabetes Bladder disease Anemia Easy bruising Back pain Inner ear dysfunction Difficulty swallowing Cough Gastric reflux Non-smoker Shortness of breath on exertion Leg cramps History of pain when walking History of stress test Chest pain History of panic attacks History of anxiety Hyperlipidemia Thyroid disorder Home Medications ?Medication ?Instructions ?Recorded ?Last Taken ?Type amitriptyline 25 mg tablet 50 mg PO QHS 10/02/17 06/09/23 History atorvastatin 20 mg tablet (Lipitor) 20 mg PO DAILY 10/02/17 06/09/23 History cholecalciferol (vitamin D3) 25 2,000 unit PO DAILY 10/02/17 Unknown History mcg (1,000 unit) capsule levothyroxine 75 mcg tablet 75 mcg PO DAILY 10/02/17 06/10/23 History Bacillus coagulans 250 million 250 cell PO DAILY 03/21/23 Unknown History cell chewable tablet (Digestive Advantage Probiotic Gummy) calcium citrate 200 mg (950 mg) 600 mg PO DAILY 03/21/23 Unknown History tablet famotidine 20 mg tablet 20 mg PO DAILY PRN PRN GERD 03/21/23 06/10/23 History paroxetine HCl 20 mg tablet 20 mg PO QHS 03/21/23 06/09/23 History turmeric 400 mg capsule 750 mg PO DAILY 03/21/23 06/29/23 History zinc gluconate 50 mg tablet 50 mg PO TUTHSA 03/21/23 Unknown History alprazolam 1 mg tablet 0.5 mg PO PRN PRN anxiety 05/28/23 Unknown History loratadine 10 mg tablet (Claritin) 10 mg PO DAILY PRN PRN allergy 05/28/23 Unknown History symptoms omega-3 650 mg-dha 400 mg-epa 200 1 cap PO DAILY 05/28/23 06/29/23 History mg-fish oil-vit D3 300 unit capsule sour sebastian extract 1,000 mg 1,000 mg PO DAILY 05/28/23 06/29/23 History capsule (Tart Sebastian Extract) polypodium leucotomos extract 240 mg PO DAILY skin 07/04/23 Unknown History mg capsule Allergy/AdvReac Type Severity Reaction Status Date / Time sulfamethoxazole (From Allergy Mild Other Verified 07/04/23 07:14 Bactrim) trimethoprim (From Bactrim) Allergy Mild Other Verified 07/04/23 07:14 Family History Mother Cancer skin bone liver endometrial Hypertension Thyroid disorder Father Hypertension Heart disease non hodgkins lymphoma Cancer Sister Kidney disease Stiff heart syndrome Other FH: mental illness Surgical History Hx of hysterectomy S/P BSO (bilateral salpingo-oophorectomy) S/P laparoscopic assisted vaginal hysterectomy (LAVH) Hx of tonsillectomy Hx of colonoscopy Hx of esophagogastroduodenoscopy History of carpal tunnel surgery of right wrist HSG History of tubal ligation Status post cervical polyp removal Social History Smoking Status: Never smoker alcohol intake: never substance use type: does not use caffeine: Yes what type of physical activity do you participate in: none seatbelt use: always do you feel safe at home: Yes additional social history: Ye- Retired Patient is retired Past Medical/Surgical History Planned Operation Planned Operative Procedure/s: COLONOSCOPY/EGD Previous Hospitalizations/Surgeries HX Hospitalizations: No Any Problems With Anesthesia: Yes (NAUSEA/VOMITING, HARD TIME WAKING) You/Your Family Experience Fever (Hyperthermia) With Anes: No Cholinesterase deficiency: No Cardiovascular Hx Hypertension: No Respiratory Hx Sleep Apnea: No Hx Respiratory Tract Infection/Cold (presently): No Do You Snore Loudly (louder than talking or can be heard): No Do You Often Feel Tired/ Fatigued/ Sleepy Dring Daytime?: No Has Anyone Observed You Stop Breathing During Sleep?: No Result (for STOP score): Negative Smoking Status: Never smoker Neurological Does patient have nerve stimulator: No Miscellaneous Recent Exposure to Contagious Disease: No Allergies sulfamethoxazole (From Bactrim) Allergy (Mild, Verified 07/04/23 07:14) Other trimethoprim (From Bactrim) Allergy (Mild, Verified 07/04/23 07:14) Other Discharge Is Pt Admitted From a Custodial, or a Halfway: No After D/C, Where Do you Plan to Go: Return Home Physical Exam Const alert, oriented x3 and no apparent distress HEENT normocephalic and head/scalp atraumatic Resp normal respiratory effort Cardio regular rate GI soft to palpation and non-tender; Negative for non-distended Palpation: Negative for guarding Extremity no clubbing, cyanosis or edema Skin no rashes or lesions noted Neuro CN's II-XII intact bilaterally Psych mental status grossly normal Assessment & Plan Assessment/Plan (1) GERD (gastroesophageal reflux disease): (2) Encounter for screening colonoscopy: Surgery Risks - Colonoscopy I discussed with the patient the risks of the procedure: Yes Risks Include but are not Limited To: Plan for EGD and colonoscopy Risks include but are not limited to: Bleeding, perforation requiring further surgery, inability to complete colonoscopy requiring barium enema.
[2023-07-04 07:31] VITALS: BP 116/70; PULSE 73; RESP 16; TEMP 36.3; O2SAT 100; BMI 28.5
[2023-07-04] MEDS: Lactated Ringers 1,000 ML 15 ML IV (07:31)
--- NOTE | 2023-07-04 08:15 | IMM_PTH ---
PATIENT: RAMYA ACUNA LOC: EN U#:[id number] AGE/SX: 67/F ROOM: RE07/04/[address]: Dr. Lyubov Vigil MD : 1955 BED: DIS: 07/04/2023 SPEC #: [id number] RECD: 07/04/23 11:51 STATUS: ALFONSO REQ #: [id number] LAURA: 07/04/23 08:[address]: Lyubov Vigil DEPT: IMMUNOHISTOCHEMISTRY RECD BY: Moisés Branham ENTERED: 07/04/23 11:52 SP TYPE: IMMUNO OTHR DR: Dr. Yisel Tatum MD Tissues: A - Gastric mucous membrane Procedures: H Pylori (initial) PHYSICIAN & INSTITUTION [place] [address] SPECIMEN INFORMATION: Tissue Source: A- Gastric antrum biopsy Clinical Info: GERD, encounter for screening colonoscopy Specimen Number: [id number] CPT code: 73187 METHODOLOGY: Deparaffinized sections of prefer/formalin-fixed tissue or PAP/DQ stained slides are incubated with monoclonal/polyclonal antibodies/oligonucleotide probes. Localization is made via biotin free immunoperoxidase method. Appropriate controls are performed and reacted as expected. Results on target cell population are indicated in the following table: RESULTS: ANTIBODY / CLONE RESULT Block A H Pylori (polyclonal) negative These tests were developed and their performance characteristics determined by [facility]. They may not have been cleared or approved by the U.S. Food and Drug Administration. The FDA has determined that such clearance or approval is not necessary. The above immunohistochemical/dualISH markers are ordered and reviewed by the Pathologist. INTERPRETATION: A. Gastric antrum, biopsy: Negative for Helicobacter pylori organisms. CARMEN/ 07/08/2023
--- NOTE | 2023-07-04 08:15 | EGD_PTH ---
PATIENT: RAMYA ACUNA LOC: EN U#:[id number] AGE/SX: 67/F ROOM: RE07/04/[address]: Dr. Lyubov Vigil MD : 1955 BED: DIS: 07/04/2023 SPEC #: [id number] RECD: 07/04/23 10:43 STATUS: ALFONSO RAFITA #: [id number] LAURA: 07/04/23 08:[address]: Lyubov Vigil DEPT: SURGICAL PATHOLOGY RECD BY: Arelis Jay ENTERED: 07/04/23 12:08 SP TYPE: EGD BIOPSY OTHR DR: Dr. Yisel Tatum MD Tissues: A - Gastric mucous membrane B - Stomach, NOS C - Ascending colon Procedures: Special Stain Group I Surgery Specimen Level IV Alcian Blue/PAS (control) HEADER OPERATION: Colonoscopy, EGD with biopsy and polypectomy PRE-OP DIAGNOSIS: GERD, encounter for screening colonoscopy TISSUE SUBMITTED: A- Gastric antrum biopsy, B- Gastroesophageal junction biopsy, C- Ascending colon polyp MICROSCOPIC DIAGNOSIS A. Gastric antrum, biopsy: Mild chronic gastritis. B. Gastroesophageal junction, biopsy: Mild chronic inflammation. Focal changes of reflux. No evidence of goblet cell metaplasia. See comment. C. Ascending colon polyp, biopsy: Tubular adenoma. AM/ 07/08/2023 COMMENT A. The results of immunohistochemistry for Helicobacter pylori will be reported separately ([id number]). B. Alcian blue/PAS stain with matched control supports the above diagnosis. MICROSCOPIC DESCRIPTION Slides are reviewed. GROSS DESCRIPTION A. Received in fixative is one container labeled with the patient's name and designated Gastric antrum. The specimen consists of two irregular fragments of light vallejo soft tissue that in aggregate measure 0.6 x 0.3 x 0.1 cm. The specimen is totally submitted in one cassette. B. Received in fixative is one container labeled with the patient's name and designated GE junction biopsy. The specimen consists of one irregular fragment of light vallejo soft tissue that measures 0.6 x 0.3 x 0.1 cm. The specimen is totally submitted in one cassette. C. Received in fixative is one container labeled with the patient's name and designated Ascending colon polyp. The specimen consists of one irregular fragment of light vallejo soft tissue that measures 0.3 x 0.3 x 0.1 cm. The specimen is totally submitted in one cassette. CARMEN/ 07/04/2023 TC:3 CPT:22741i0,66405
[2023-07-04 08:41] VITALS: BP 116/70; BP 123/57; PULSE 77; RESP 16; TEMP 36.6; O2SAT 100
[2023-07-04] MEDS: Pantoprazole Sodium 40 MG in 0.9% Normal Saline (100mL MB+) 100 ML 330 MG IV (08:44)
[2023-07-04 08:45] VITALS: BP 116/70; BP 120/68; PULSE 73; RESP 16; O2SAT 100
--- NOTE | 2023-07-04 08:46 | OP.CCLET_ITS ---
07/04/2023 Yisel Tatum [address] [place] [address] Re : Upper GI endoscopy procedure for Ghada Snyder Dear Dr. Tatum This procedure was performed on Tuesday, July 04, 2023. My impressions and recommendations are as follows: Impressions : - Z-line irregular. Biopsied. - Duodenal erosion without bleeding. - Non-bleeding gastric ulcers with pigmented material. Biopsied. Recommendations : - Await pathology results. - Discharge patient to home. - Resume previous diet. - Continue present medications. - Use Prilosec (omeprazole) 40 mg PO daily. - Use sucralfate tablets 1 gram PO QID. My findings are described in the full procedure note, which is enclosed. If I can be of further assistance, please feel free to contact me at Doctor phone number(s): , Work: . Sincerely, MD Lyubov Da Silva MD 07/04/2023 8:46:29 AM This report has been signed electronically.
--- NOTE | 2023-07-04 08:46 | OP.EGD_ITS ---
Patient Name: Ghada Snyder Procedure Date: 07/04/2023 7:59 AM Date of : 1955 Age: 67 Procedure: Upper GI endoscopy Indications: Heartburn Providers: Lyubov Vigil MD Referring MD: Yisel Tatum Medicines: Monitored Anesthesia Care Patient Profile: This is a 67 year old female. Complications: No immediate complications. Procedure: Pre-Anesthesia Assessment: - Prior to the procedure, a History and Physical was performed, and patient medications and allergies were reviewed. The patient's tolerance of previous anesthesia was also reviewed. The risks and benefits of the procedure and the sedation options and risks were discussed with the patient. All questions were answered, and informed consent was obtained. Prior Anticoagulants: The patient has taken no anticoagulant or antiplatelet agents. ASA Grade Assessment: Per anesthesia. After reviewing the risks and benefits, the patient was deemed in satisfactory condition to undergo the procedure. After obtaining informed consent, the endoscope was passed under direct vision. Throughout the procedure, the patient's blood pressure, pulse, and oxygen saturations were monitored continuously. The colonoscope was introduced through the mouth, and advanced to the second part of duodenum. The upper GI endoscopy was accomplished without difficulty. The patient tolerated the procedure well. Scope In: 8:06:38 AM Scope Out: 8:13:31 AM Total Procedure Duration Time 0 hours 6 minutes 53 seconds Findings: The Z-line was irregular. Biopsies were taken with a cold forceps for histology. A single erosion without bleeding was found in the duodenal bulb. Four non-bleeding linear and superficial gastric ulcers with pigmented material were found in the gastric antrum. The largest lesion was 4 mm in largest dimension. Biopsies were taken with a cold forceps for histology. Biopsies were taken with a cold forceps for Helicobacter pylori cultures. The cardia and gastric fundus were normal on retroflexion. Impression: - Z-line irregular. Biopsied. - Duodenal erosion without bleeding. - Non-bleeding gastric ulcers with pigmented material. Biopsied. Recommendation: - Await pathology results. - Discharge patient to home. - Resume previous diet. - Continue present medications. - Use Prilosec (omeprazole) 40 mg PO daily. - Use sucralfate tablets 1 gram PO QID. Procedure Code(s): --- Professional --- 17036, Esophagogastroduodenoscopy, flexible, transoral; with biopsy, single or multiple Diagnosis Code(s): --- Professional --- K22.89, Other specified disease of esophagus K26.9, Duodenal ulcer, unspecified as acute or chronic, without hemorrhage or perforation K25.9, Gastric ulcer, unspecified as acute or chronic, without hemorrhage or perforation R12, Heartburn CPT copyright 2021 [employer]. All rights reserved. The codes documented in this report are preliminary and upon crime laboratory analyst review may be revised to meet current compliance requirements. MD Lyubov Da Silva MD 07/04/2023 8:46:29 AM This report has been signed electronically. Number of Addenda: 0 Note Initiated On: 07/04/2023 7:59 AM
--- NOTE | 2023-07-04 08:49 | OP.CCLET_ITS ---
07/04/2023 Yisel Tatum [place] [address] [address] Re : Colonoscopy procedure for Ghada Snyder Dear Dr. Tatum This procedure was performed on Tuesday, July 04, 2023. My impressions and recommendations are as follows: Impressions : - One less than 5 mm polyp in the ascending colon. Biopsied. - The examination was otherwise normal on direct and retroflexion views. Recommendations : - Discharge patient to home. - Resume previous diet. - Continue present medications. - Await pathology results. - Repeat colonoscopy in 5 years for surveillance based on pathology results. My findings are described in the full procedure note, which is enclosed. If I can be of further assistance, please feel free to contact me at Doctor phone number(s): , Work: . Sincerely, MD Lyubov Da Silva MD 07/04/2023 8:49:08 AM This report has been signed electronically.
--- NOTE | 2023-07-04 08:49 | OP.COLON_ITS ---
Patient Name: Ghada Snyder Procedure Date: 07/04/2023 8:15 AM Date of : 1955 Age: 67 Procedure: Colonoscopy Indications: Screening for colorectal malignant neoplasm Providers: Lyubov Vigil MD Referring MD: Yisel Tatum Medicines: Monitored Anesthesia Care Patient Profile: This is a 67 year old female. Last Colonoscopy: 10 years ago. Complications: No immediate complications. Procedure: Pre-Anesthesia Assessment: - Prior to the procedure, a History and Physical was performed, and patient medications and allergies were reviewed. The patient's tolerance of previous anesthesia was also reviewed. The risks and benefits of the procedure and the sedation options and risks were discussed with the patient. All questions were answered, and informed consent was obtained. Prior Anticoagulants: The patient has taken no anticoagulant or antiplatelet agents. ASA Grade Assessment: Per anesthesia. After reviewing the risks and benefits, the patient was deemed in satisfactory condition to undergo the procedure. After I obtained informed consent, the scope was passed under direct vision. Throughout the procedure, the patient's blood pressure, pulse, and oxygen saturations were monitored continuously. The colonoscope was introduced through the anus and advanced to the cecum, identified by the ileocecal valve. The colonoscopy was performed without difficulty. The patient tolerated the procedure well. The quality of the bowel preparation was good. Scope In: 8:15:15 AM Scope Withdrawal Time 0 hours 12 minutes 2 seconds Scope Out: 8:34:53 AM Total Procedure Duration Time 0 hours 19 minutes 38 seconds Findings: The perianal and digital rectal examinations were normal. A less than 5 mm polyp was found in the ascending colon. The polyp was sessile. Biopsies were taken with a cold forceps for histology. The exam was otherwise without abnormality on direct and retroflexion views. Impression: - One less than 5 mm polyp in the ascending colon. Biopsied. - The examination was otherwise normal on direct and retroflexion views. Recommendation: - Discharge patient to home. - Resume previous diet. - Continue present medications. - Await pathology results. - Repeat colonoscopy in 5 years for surveillance based on pathology results. Procedure Code(s): --- Professional --- 80995, PT, Colonoscopy, flexible; with biopsy, single or multiple Diagnosis Code(s): --- Professional --- Z12.11, Encounter for screening for malignant neoplasm of colon D12.2, Benign neoplasm of ascending colon CPT copyright 2021 [employer]. All rights reserved. The codes documented in this report are preliminary and upon remote inpatient coder review may be revised to meet current compliance requirements. MD Lyubov Da Silva MD 07/04/2023 8:49:08 AM This report has been signed electronically. Number of Addenda: 0 Note Initiated On: 07/04/2023 8:15 AM
[2023-07-04 08:50] VITALS: BP 116/70; BP 117/61; PULSE 73; RESP 16; TEMP 22.2; O2SAT 100
[2023-07-04 09:13] VITALS: BP 116/70
== END 2023-07-04 10:15 | disposition home or self-care (01) ==
LOC: EN 07:07 → AC 07:07
PROVIDERS: PCP Family Medicine; Referring Provider Family Medicine; Visit Provider Surgery
PROC: 0DJD8ZZ Inspection of Lower Intestinal Tract, Via Natural or Artificial Opening Endoscopic (ICD-10-PCS; CPT 45378; principal; 2023-07-04 08:10)
DX: Z12.11 Encounter for screening for malignant neoplasm of colon (principal); R73.03 Prediabetes; K21.00 Gastro-esophageal reflux disease with esophagitis, without bleeding; K25.9 Gastric ulcer, unspecified as acute or chronic, without hemorrhage or perforation; E07.9 Disorder of thyroid, unspecified; F41.0 Panic disorder [episodic paroxysmal anxiety]; E78.5 Hyperlipidemia, unspecified; K29.50 Unspecified chronic gastritis without bleeding; D12.2 Benign neoplasm of ascending colon; K22.89 Other specified disease of esophagus; Z79.899 Other long term (current) drug therapy
CPT/HCPCS: 43239; 45380; 88305; 88312; 88342; J7120; J2405

== ENCOUNTER → 2023-09-30 | Outpatient (CLI) | payer MEDICARE, SELFPAY ==
[2023-09-30 12:42] LABS: Cholesterol 227 mg/dL (200); High Density Lipoprotein 48 mg/dL; Triglycerides 126 mg/dL; Very Low Density Lipoprotein 25 mg/dL (5-40)
[2023-09-30 14:45] LABS: Hemoglobin A1c 5.8 % (3.8-5.6)
== END | disposition home or self-care (01) ==
LOC: MTLAB 10:00
PROVIDERS: PCP Family Medicine; Referring Provider Family Medicine; Visit Provider Family Medicine
DX: E03.9 Hypothyroidism, unspecified (principal); E78.00 Pure hypercholesterolemia, unspecified; R73.03 Prediabetes
CPT/HCPCS: 36415; 80061; 83036; 84443

== ENCOUNTER 2023-10-07 10:30 | Outpatient (RCR) | payer MEDICARE, SELFPAY ==
--- NOTE | 2023-08-05 16:36 | HP.PTEVAL_ITS ---
Patient's Visit Information Visit Information Visit Information: RAMYA ACUNA is a 68 year old F referred to Physical Therapy by GHASSAN COOK with a diagnosis of Plantar Fasciitis. Date of Evaluation: 08/05/23 Physical Therapist: Josselyn Vo DPT Visit Plan Frequency: 2x /Week Duration: 4 Weeks Plan: Plantar Fascia- US- Manual/GRASTON- GENTLE gastroc stretching- DN PRN HEP-Orthotic Wear, ice water bottle- stretching GENTLE Subjective Subjective: Left plantar fasciitis for a little over a year- saw Dr. Hartman- pain was on/off- since the February no off- went back to her sometime in the spring- she was told to get better shoes. They just got back from [place] a week ago. Got Lynn and the Nike Zoom shoes in May and it got better- after a couple of weeks it went downhill. She is also doing some stretches but not all of them. They went to [place] at the end of June for her granddaughters birthday- so she went to see someone out there. She had an x-rays that showed a bone spur and reported that its plantar fasciitis. Options are: steroid pill, injection. She had the injection- 07/15/23- He wanted her to hold the stretches longer- she was excited because it felt better. She felt that it was worse for a week but felt that the stretches were making her worse so she stopped. He also ordered PT with [place] and dry needling. She just finished the oral steroid pack yesterday. The more she is on her feet the more pain she has. She has more pain on uneven surfaces. She does a band stretch, ice the heel 20 min 2x a day, massage the calf 20 min, rolling pin, toe spacers, gel heels, boot an hour a day, rolling the bottom with a ball. She has sharp shooting pains along the bottom and into the heel- pain radiating to the outside of the foot. The pain goes down to a 0/10 with sitting 3/10 with walking. Sleep: not disturbed- side sleeper. No one has talked about putting her in a CAM boot. Has not had PT for her foot pain. No issues with her right foot. She has orthotics in both shoes. Objective Objective: Posture: forward head, rounded shoulders Gait: antalgic- decreased stance on left LE- poor heel/toe pattern- very painful with first few steps HR/TR: able with pain SLS: weight shift but unable to SLS due to pain Palpation: tender along heel and medial plantar fascia Flex: Gastroc: moderate, Soleus: moderate, Hamstring: moderate ROM: Knee: WNL, Ankle: DF: 10 degrees, PF/Inv/Ev: WNL Strength: 4+/5 throughout LE Special Test: + Windlass mechanism Balance/Special Test Scores Lower Extremity Functional Score: 36 Goals Goal 1:: Patient will be I with HEP and progression Goal Time Frame: 4-6 Weeks Goal 2:: Patient will ambulate >150 feet without pain Goal Time Frame: 4-6 Weeks Goal 3:: Patient will SLS without pain Goal Time Frame: 4-6 Weeks Goal 4:: Patient will report 80% improvement Goal Time Frame: 4-6 Weeks Rehabilitation Potential Physical Therapy Diagnosis: Patient presents with hypomobility- she has decreased LE and core strength/stabilization, pain free ROM, flex, proprioception and muscular endurance leading to increased inflammation and pain with ADL's. Rehabilitation Potential: Fair Anticipated Interventions Patient/Client Instruction: Educate patient on: Benefits of Fitness Program Therapeutic Exercise to Include: Strength training, Endurance training, Balance training, Coordination, Agility training, Body mechanics, Postural training, Flexibilty training, Gait and locomotor training, Neuromotor development, Passiv e ROM, Active ROM, Dynamic Lumbar Stabilization and Scapular Strength/Stabilization Manual Therapy Techniques to Include: Mobilization, Functional dry needling and Soft tissue mobilization TENS: Yes Cryotherapy (ice pack, ice massage): Yes Thermo therapy (hot pack): Yes Ultrasound (thermal/non thermal): Yes Text: Thank you for the opportunity to evaluate your patient. For Medicare and Medicare HMO plans, please review the plan of care and approve it. It will need to be FAXED BACK to us at [phone] for Medicare purposes. For Medicare only, by signing this I certify the plan of care. Please let me know if there are questions or concerns regarding this plan of care. Physician Signature: Date:
--- NOTE | 2023-09-17 11:11 | HP.PTREVAL ---
Re-Evaluation Intro: GHASSAN COOK, It has been my pleasure to treat RAMYA ACUNA over the last 10 visits for L Plantar Fasciitis. Please see the progress note below for an update on the physical therapy plan of care! Subjective Subjective: She is def better. Before she had a constant limp and the limp now is very selldom. Friday she was on her feet all day and by the end of the day she could tell she still had pain but the next day she was ok. She still has pain with upper leg pain. She is no longer using the gel heel pad and still wears the orthotics. She does the rolling pin first and then the towel stretch. She wears shoes in her house too. Objective Objective/Function: Gait: walks with decrease stance time on the L LE Pt has increase pain with walking on her heels and some light pain walking on the toes. SLS 13 seconds on the L R SLS 5 seconds Plan Plan Plan: Plantar Fascia- US (no charge if feels that it is helping)- Manual/GRASTON- GENTLE gastroc stretching, start some SLB (ankle and foot stability), ankle strengthening followed by Gastroc and PF stretching (May try the light step stretch again). HEP-Orthotic Wear, ice water bottle- stretching GENTLE Balance/Gait/Functional tests Balance/Special Test Scores Lower Extremity Functional Score: 50 Goals Goals Goal 1:: Patient will be I with HEP and progression Goal Time Frame: 4-6 Weeks Goal 2:: Be able to walk with no antalgic gait and equal stance time on B LE's Goal Time Frame: 4-6 Weeks Goal Progress: Progressing Goal 3:: Patient will SLS without pain Goal Time Frame: 4-6 Weeks Goal 4:: Patient will report 90% improvement Goal Time Frame: 4-6 Weeks Goal 5:: Be ab Anticipated Interventions Anticipated Interventions Patient/Client Instruction: Educate patient on: Benefits of Fitness Program Therapeutic Exercise to Include: Strength training, Endurance training, Balance training, Coordination, Agility training, Body mechanics, Postural training, Flexibilty training, Gait and locomotor training, Neuromotor development, Passive ROM, Active ROM, Dynamic Lumbar Stabilization and Scapular Strength/Stabilization Manual Therapy Techniques to Include: Mobilization, Functional dry needling and Soft tissue mobilization TENS: Yes Cryotherapy (ice pack, ice massage): Yes Thermo therapy (hot pack): Yes Ultrasound (thermal/non thermal): Yes Re-Evaluation Ending Re-evaluation ending: Please do not hesitate to contact me at [phone] by phone or if you have questions or concerns regarding this new plan of care! Sincerely, Layla Johnson, MPT
--- NOTE | 2023-10-07 10:50 | HP.PTDCSUM ---
Discharge Summary D/C summary: It has been my pleasure to treat RAMYA ACUNA referred by GHASSAN COOK, with the diagnosis of L Plantar Fasciitis for a total of 16 visit(s). Discharge Date: 10/07/23 Please see the following information for a summary of their discharge status. Subjective Subjective: She is doing pretty good and liked working on strengthening. She feels that she is not walking with a limp anymore. If she has been on it all day she will still feel it. Pain L foot: Pain Intensity (Out of 10): 1 Overall Improvement % Improvement: 90 Objective Objective/Function: Gait: slight decrease stance time on the L LE ut very slight Pt is able to SLB on the L for 12 seconds Goals Goal 1:: Patient will be I with HEP and progression Goal Progress: Goal Met Goal 2:: Be able to walk with no antalgic gait and equal stance time on B LE's Goal Progress: Progressing Goal 3:: Patient will SLS without pain Goal Progress: Goal Met Goal 4:: Patient will report 90% improvement Goal Progress: Goal Met Goal 5:: Be ab Plan Plan: DC PT to HEP D/C Information Discharge Comments: DC PT to HEP d/c sentence: If there are questions or concerns regarding this patient's physical therapy, please feel free to call me at [phone]. Thank you for the referral of this patient. Sincerely, Layla Johnson, MPT Balance/Gait/Functional tests Balance/Special Test Scores Lower Extremity Functional Score: 61 Improvement % Improvement: 90
== END 2023-10-07 19:00 | disposition home or self-care (01) ==
LOC: PT 10:30
PROVIDERS: PCP Family Medicine
DX: M72.2 Plantar fascial fibromatosis (principal)
CPT/HCPCS: 97035; 97110; 97140; 97162; 97530

== ENCOUNTER → 2023-10-31 | Outpatient (CLI) | payer MEDICARE, SELFPAY | END | disposition home or self-care (01) | PROVIDERS: PCP Family Medicine; Referring Provider Physician Assistant Surgical; Visit Provider Physician Assistant Surgical | DX: R30.0 Dysuria (principal) | CPT/HCPCS: 87086 ==

== ENCOUNTER → 2024-03-30 | Outpatient (CLI) | payer MEDICARE, SELFPAY | END | disposition home or self-care (01) | LOC: LABSPEC 13:08 | PROVIDERS: PCP Family Medicine; Visit Provider Family Medicine | DX: R30.0 Dysuria (principal) | CPT/HCPCS: 87077; 87086; 87088; 87186 ==

== ENCOUNTER → 2024-05-14 | Outpatient (CLI) | payer MEDICARE, SELFPAY ==
--- NOTE | 2024-05-14 13:29 | BI_ITS ---
EXAM: SCRN MAMM (CAD)W/MIRIAM BILAT 05/14/2024 CLINICAL HISTORY: F, Age 68 y/o , SCREENING TECHNIQUE: Bilateral screening digital breast tomosynthesis with 2D and 3D images. Computer aided detection. COMPARISON: Prior exam(s) dated 03/21/2023, 03/08/2022. FINDINGS: TISSUE DENSITY: The breast tissue is composed of scattered area of fibroglandular density. Bilateral Breast Mammographic Findings: No significant masses, calcifications or other abnormalities are identified. BI/SCRN MAMM (CAD)W/MIRIAM BILAT IMPRESSION: Right Breast: BIRADS 1 NEGATIVE. Left Breast: BIRADS 1 NEGATIVE. OVERALL FINAL ASSESSMENT: BIRADS 1 NEGATIVE. RECOMMENDATION: Routine annual follow-up in 1 Year A letter with findings and recommendations will be mailed to the patient. Reading Location: [id number]
== END | disposition home or self-care (01) ==
LOC: OPBI 13:28
PROVIDERS: PCP Family Medicine; Referring Provider Obstetrics & Gynecology; Visit Provider Obstetrics & Gynecology
DX: Z12.31 Encounter for screening mammogram for malignant neoplasm of breast (principal)
CPT/HCPCS: 77063; 77067

== ENCOUNTER 2024-06-08 11:00 | Outpatient (RCR) | payer MEDICARE, SELFPAY ==
--- NOTE | 2024-03-08 13:57 | HP.PTEVAL_ITS ---
Patient's Visit Information Visit Information Visit Information: RAMYA ACUNA is a 68 year old F referred to Physical Therapy by ALEJANDRO ARMSTRONG with a diagnosis of B shoulder Impingement. Date of Evaluation: 03/08/24 Physical Therapist: LUCAS Spangler Visit Plan Frequency: 2x /Week Duration: 2 Months Plan: 2X/ week for 8 weeks for postural and scapular strength, AROM of B shoulders, RC strength with HEP HEP: scapular squeeze, mid rows with green band and corner stretch Subjective Subjective: Pt was told that she has impingement syndrome of B shoulders. She did get a cortisone shot in B shoulders. Before the shot she was taking 2 IBPROF each morning. After the shot she does not have fun. Her shoulders feel great but she does not want them to come back. She did not have any injury. She was backing off 2 Amitriptyline and got down to one a day and started to notice the pain. She is a side sleeper and it does bother and the movement across her shoulders would cause it. She does have calcium deposits. It started about Dec-Jan and the shot was 03/02. She is retired. She is fairly active, has not exercised much as of now. She does a lot of things in front of her during the day. She has no N&T. She has some neck stiffness that she just noticed the other day. The pain does not bother her to sleep as of now. Pain R shoulder pain: Pain Intensity (Out of 10): 0 L shoulder pain: Pain Intensity (Out of 10): 0 Objective Objective: R handed B bicep reflex 2+/3 UE AROM: R shoulder flex 152 and L 142 R shoulder ABD 170 and L 170 R shoulder IR T12 R shoulder ER 70 and L 71 Posture: Rounded shoulders and scapular protraction UE MMT R shoulder flex 9.7 and L 10.3 R shoulder ABD 12.1 and L 102 R shoulder ER 11.9 and L 10.6 R shoulder IR 10.2 and L 9.4 + Impingement sign B palpation: tender under B acromion's Discussed in length ways to correct protracted shoulders and more upright posture with towel roll, times etc Balance/Special Test Scores Quick DASH Score: 13.6350 Goals Goal 1:: I HEP Goal Time Frame: 6-8 Weeks Goal 2:: Increase B shoulder AROM (at the time of the eval: UE AROM: R shoulder flex 152 and L 142 R shoulder ABD 170 and L 170 R shoulder IR T12 R shoulder ER 70 and L 71) Goal Time Frame: 6-8 Weeks Goal 3:: Increase B shoulder strength (at the time of the eval: UE MMT R shoulder flex 9.7 and L 10.3 R shoulder ABD 12.1 and L 102 R shoulder ER 11.9 and L 10.6 R shoulder IR 10.2 and L 9.4) Goal Time Frame: 6-8 Weeks Goal 4:: Be able to resume exercises and ADL's without shoulder pain Goal Time Frame: 6-8 Weeks Rehabilitation Potential Rehabilitation Potential: Good Anticipated Interventions Patient/Client Instruction: Educate patient on: Condition and Plan of Care For the Purpose of:: To decrease pain, To increase ROM, To improve nutrient delivery to tissue, To improve muscle performance and motor function, To improve ability to perform ADL's, To increase tolerance to activity/condition/position, To improve performance and independence with ADL's, To decrease level of supervision to perform tasks, To improve ability of physical actions for home/community/work/leisure, To improve health of tissue, To decrease soft tissue restriction and To increase flexibility/ROM Therapeutic Exercise to Include: Strength training, Postural training, Flexibilty training, Neuromotor development, Passive ROM, Active ROM and Scapular Strength/Stabilization For the Purpose of:: To decrease pain, To increase ROM, To improve muscle performance and motor function, To improve ability to perform ADL's, To increase tolerance to activity/condition/position, To improve performance and independence with ADL's, To improve ability of physical actions for home/community/work/leisure, To improve health of tissue, To decrease soft tissue restriction and To increase flexibility/ROM Manual Therapy Techniques to Include: Passive ROM For the Purpose of:: To increase ROM Cryotherapy (ice pack, ice massage): Yes Thermo therapy (hot pack): Yes For the Purpose of:: To decrease pain, To decrease swelling/inflammation, To increase ROM and To improve nutrient delivery to tissue Text: Thank you for the opportunity to evaluate your patient. For Medicare and Medicare HMO plans, please review the plan of care and approve it. It will need to be FAXED BACK to us at [phone] for Medicare purposes. For Medicare only, by signing this I certify the plan of care. Please let me know if there are questions or concerns regarding this plan of care. Physician Signature: Date:
--- NOTE | 2024-04-13 13:41 | HP.PTREVAL ---
Re-Evaluation Intro: ALEJANDRO ARMSTRONG, It has been my pleasure to treat RAMYA ACUNA over the last 8 visits for B shoulder Impingement. Please see the progress note below for an update on the physical therapy plan of care! Subjective Subjective: The pain in the R shoulder came back after the injection but the L did not. Sx of the R shoulder are when she is in bed and when rolls over and pulls the cover up and into IR (does not notice it too much). She notices that she has improved in strength and not take so many breaks. She has not noticed any issues with the L shoulder. 2-04/19 R shoulder pain when she moves it in the wrong direction. She has been trying with posture but she does forgets. Objective Objective/Function: UE AROM: R shoulder flex 162 and L 157 R shoulder ABD 174 and L 170 R shoulder IR RT8 and L T6 R shoulder ER 70 and L 71) UE MMT: R shoulder flex 11.9 and L 11.7 R shoulder ABD 12.1 and L 102 R shoulder ER 13.2 and L 14.9 R shoulder IR 13 and L 12.6 Plan Plan Plan: Add scapular strength (ideas: Prone T's/Y's, double ER with scapular retraction, Prone Rows, lat pull downs) with in pain tolerance 2X/ week for 8 weeks for postural and scapular strength, AROM of B shoulders, RC strength with HEP HEP: scapular squeeze, mid rows with green band and corner stretch Balance/Gait/Functional tests Balance/Special Test Scores Quick DASH Score: 13.6350 Goals Goals Goal 1:: I HEP Goal Time Frame: 6-8 Weeks Goal Progress: Goal Met Goal 2:: Increase B shoulder AROM (at the time of the eval: UE AROM: R shoulder flex 152 and L 142 R shoulder ABD 170 and L 170 R shoulder IR T12 R shoulder ER 70 and L 71) Goal Time Frame: 6-8 Weeks Goal Progress: Progressing Goal 3:: Increase B shoulder strength (at the time of the eval: UE MMT R shoulder flex 9.7 and L 10.3 R shoulder ABD 12.1 and L 102 R shoulder ER 11.9 and L 10.6 R shoulder IR 10.2 and L 9.4) Goal Time Frame: 6-8 Weeks Goal Progress: Progressing Goal 4:: Be able to resume exercises and ADL's without shoulder pain Goal Time Frame: 6-8 Weeks Goal Progress: Progressing Anticipated Interventions Anticipated Interventions Patient/Client Instruction: Educate patient on: Condition and Plan of Care For the Purpose of:: To decrease pain, To increase ROM, To improve nutrient delivery to tissue, To improve muscle performance and motor function, To improve ability to perform ADL's, To increase tolerance to activity/condition/position, To improve performance and independence with ADL's, To decrease level of supervision to perform tasks, To improve ability of physical actions for home/community/work/leisure, To improve health of tissue, To decrease soft tissue restriction and To increase flexibility/ROM Therapeutic Exercise to Include: Strength training, Postural training, Flexibilty training, Neuromotor development, Passive ROM, Active ROM and Scapular Strength/Stabilization For the Purpose of:: To decrease pain, To increase ROM, To improve muscle performance and motor function, To improve ability to perform ADL's, To increase tolerance to activity/condition/position, To improve performance and independence with ADL's, To improve ability of physical actions for home/community/work/leisure, To improve health of tissue, To decrease soft tissue restriction and To increase flexibility/ROM Manual Therapy Techniques to Include: Passive ROM For the Purpose of:: To increase ROM Cryotherapy (ice pack, ice massage): Yes Thermo therapy (hot pack): Yes For the Purpose of:: To decrease pain, To decrease swelling/inflammation, To increase ROM and To improve nutrient delivery to tissue Re-Evaluation Ending Re-evaluation ending: Please do not hesitate to contact me at [phone] by phone or if you have questions or concerns regarding this new plan of care! Sincerely, Layla Johnson, MPT
--- NOTE | 2024-06-08 11:52 | HP.PTDCSUM ---
Discharge Summary D/C summary: It has been my pleasure to treat RAMYA ACUNA referred by ALEJANDRO ARMSTRONG, with the diagnosis of B shoulder Impingement for a total of 19 visit(s). Discharge Date: 06/08/24 Please see the following information for a summary of their discharge status. Subjective Subjective: Pt reports that she is about the same. The L is better but the R is not much better. She is now taking one Tylenol in AM and 2 at bedtime. She was doing better and then she did some weed pulling and got worse again. R shoulder 20% and L is back to normal. Pain R shoulder pain: Pain Intensity (Out of 10): 2 L shoulder pain: Pain Intensity (Out of 10): 0 Overall Improvement % Improvement: 20 Objective Objective/Function: UE AROM: R shoulder flex 158 and L 160 R shoulder ABD 170 and L 170 R shoulder IR T12 R shoulder ER 75 and L 80 UE MMT R shoulder flex 12.1 and L 12.7 R shoulder ABD 12.1 and L 10.2 R shoulder ER 11.9 and L 12. R shoulder IR 13.1and L 11.9 Goals Goal 1:: I HEP Goal Progress: Goal Met Goal 2:: Increase B shoulder AROM (at the time of the eval: UE AROM: R shoulder flex 152 and L 142 R shoulder ABD 170 and L 170 R shoulder IR T12 R shoulder ER 70 and L 71) Goal Progress: Progressing Goal 3:: Increase B shoulder strength (at the time of the eval: UE MMT R shoulder flex 9.7 and L 10.3 R shoulder ABD 12.1 and L 102 R shoulder ER 11.9 and L 10.6 R shoulder IR 10.2 and L 9.4) Goal Progress: Progressing Goal 4:: Be able to resume exercises and ADL's without shoulder pain Goal Progress: Progressing Plan Plan: Give face pulls for HEP and other pictures that the pt does not have to do at home and then probable DC to HEP No Ultrasound per insurance. Continue with scapular strength and RC strength. Add scapular strength (ideas: Prone T's/Y's, double ER with scapular retraction, Prone Rows, lat pull downs) with in pain tolerance 2X/ week for 8 weeks for postural and scapular strength, AROM of B shoulders, RC strength with HEP HEP: scapular squeeze, mid rows with green band and corner stretch D/C Information Discharge Comments: DC PT back to d/c sentence: If there are questions or concerns regarding this patient's physical therapy, please feel free to call me at [phone]. Thank you for the referral of this patient. Sincerely, Layla Johnson, MPT Balance/Gait/Functional tests Balance/Special Test Scores Quick DASH Score: 15.9075 Improvement % Improvement: 20
== END 2024-06-08 19:00 | disposition home or self-care (01) ==
LOC: PT 11:00
PROVIDERS: PCP Family Medicine
DX: M75.41 Impingement syndrome of right shoulder (principal); M75.42 Impingement syndrome of left shoulder
CPT/HCPCS: 97035; 97110; 97161; 97530

== ENCOUNTER → 2024-07-02 | Outpatient (CLI) | payer MEDICARE, SELFPAY ==
[2024-07-02 18:04] LABS: Absolute Lymphocyte Count 1.25 X10^3/uL (0.83-4.51); Absolute Neutrophil Count 6.4 X10^3/uL (2.0-7.7); Basophil# 0.04 X10^3/uL; Basophil% 0.5 % (0-1); Eosinophil# 0.03 X10^3/uL; Eosinophils% 0.4 % (0-5); Hematocrit 38.8 % (37-47); Hemoglobin 12.8 g/dL (12.0-15.0); Lymphocyte # 1.25 X10^3/ul (0.83-4.51); Lymphocyte % 14.8 % (19-41); Mean Corpuscular Hgb 29.6 pg (27.0-32.0); Mean Corpuscular Volume 89.8 fL (81-99); Mean Platelet Vol. 10.5 fl (6.2-12.0); Monocyte# 0.71 X10^3/uL; Monocyte% 8.4 % (0-10); NRBC Flagged by Analyzer 0 % (0-5); Neutrophil # 6.38 X10^3/uL (2.7-7.7); Neutrophil % 75.5 % (47-70); Platelet Count 287 K/mm3 (150-450); RBC Distribution Width CV 13.6 % (11.6-14.6); RBC Distribution Width SD 44.4 fl (35.1-43.9); Red Blood Count 4.32 M/mm3 (4.2-5.4); White Blood Count 8.4 K/mm3 (4.4-11.0)
[2024-07-02 18:19] LABS: ALB/GLOB Ratio 1.5 RATIO (0.9-2.4); AST(SGOT) 33 U/L (<=31); Alanine Aminotransfer ALT/SGPT 42 U/L (<=34); Albumin, Serum 4.5 g/dL (3.4-4.8); Alkaline Phosphatase 82 U/L (35-104); Anion Gap 12 (5-15); BUN 14 mg/dL (4-19); BUN/Creat Ratio 17.4 RATIO (10-20); Calcium,Total 9.9 mg/dL (7.6-11.0); Carbon Dioxide 23.5 mmol/L (21.0-32.0); Chloride 104 mmol/L (98-108); Creatinine, Serum 0.79 mg/dL (0.70-1.20); EST Glomerular Filtration Rate 83 (>60); Globulin 2.9 g/dL (2.2-4.2); Glucose 109 mg/dL (70-99); Potassium 3.8 mmol/L (3.3-5.1); Protein, Total 7.4 g/dL (5.9-8.4); Sodium Level 140 mmol/L (133-145); Total Bilirubin 0.17 mg/dL (0.00-1.30)
[2024-07-07 16:09] LABS: Lyme IgG P18 Ab Absent (.); Lyme IgG P23 Ab Absent (.); Lyme IgG P28 Ab Absent (.); Lyme IgG P30 Ab Absent (.); Lyme IgG P39 Ab Absent (.); Lyme IgG P41 Ab Absent (.); Lyme IgG P45 Ab Absent (.); Lyme IgG P58 Ab Absent (.); Lyme IgG P66 Ab Absent (.); Lyme IgG P93 Ab Absent (.); Lyme IgG WB Interpretation Negative (Negative); Lyme IgM P23 Ab Absent (.); Lyme IgM P39 Ab Present (.); Lyme IgM P41 Ab Absent (.); Lyme IgM WB Interpretation Negative (Negative)
== END | disposition home or self-care (01) ==
LOC: MTLAB 16:05
PROVIDERS: PCP Family Medicine; Referring Provider Nurse Practitioner Family; Visit Provider Nurse Practitioner Family
DX: E03.9 Hypothyroidism, unspecified (principal); W57.XXXA Bitten or stung by nonvenomous insect and other nonvenomous arthropods, initial encounter
CPT/HCPCS: 36415; 80053; 84439; 84443; 85025; 86617